=== PATIENT | female | born 1990 | race Native Hawaiian/Other Pacific Islander ===

== ENCOUNTER → 2017-02-16 | Outpatient (CLI) | payer SELFPAY ==
[~2017-02-16] MED LIST: ACHD5005 PO; CLIN-81 PO; DCS100C PO; FERR-57 PO; HYDR-3714 PO; IBP600T1 PO; MUPI15CR10 TP; ONDA8TAB13 PO; PNV1CAPS13 PO
--- NOTE | 2017-02-16 12:26 | Diagnostic Imaging Report ---
INDICATION: Evaluation for size and dates. TECHNIQUE: Multiple real-time grayscale images were obtained over the gravid uterus. COMPARISON: None. FINDINGS: There is presence of single viable intrauterine , currently in cephalic presentation. Normal amount of amniotic fluid. Anteriorly positioned placenta without previa. Visualized anatomical structures are unremarkable. The cardiac structures however are not visualized. Biometrical measurements are as follows: Biparietal 7.4 cm, age 29 weeks 6 days. Head circumference 27.83 cm, age 30 weeks 4 days. Abdominal circumference 25.92 cm, age 30 weeks 1 days. Femur length 5.66 cm, age 29 weeks 6 days. Sonographic estimate age: 30 weeks 1 days. Sonographic estimated date of delivery: 04-26-17. Estimated Weight: 1489 gm (+/- 217 gm). LMP percentile: 41%. heart rate: 155 beats per minute. number: 1 of 1. Maternal adnexa is not imaged. IMPRESSION: 1. Single viable intrauterine , currently in cephalic presentation. Sonographic estimated age is 30 weeks 1 day for an estimated date of delivery of April 26, 2017. 2. No abnormality is noted at this time. The cardiac structures however are not well assessed at this examination. Consideration for followup imaging recommended. Dictated by: Dictated on workstation # [id number]
== END ==
LOC: RAD 09:42
PROVIDERS: ATTEND Family Medicine
DX: Z34.93 Encounter for supervision of normal pregnancy, unspecified, third trimester (principal); Z3A.30 30 weeks gestation of pregnancy
CPT/HCPCS: 76805

== ENCOUNTER 2017-04-17 10:07 | Outpatient (CLI) | payer SELFPAY ==
[~2017-04-17] VITALS: Ht 157.5 cm; Wt 71.7 kg
[2017-04-17 10:21] VITALS: BP 110/68
== END 2017-04-17 10:44 | disposition home or self-care (01) ==
LOC: PREOP 10:07
PROVIDERS: ATTEND Obstetrics & Gynecology
DX: Z01.818 Encounter for other preprocedural examination (principal); Z11.2 Encounter for screening for other bacterial diseases; O34.211 Maternal care for low transverse scar from previous cesarean delivery; Z80.41 Family history of malignant neoplasm of ovary
CPT/HCPCS: 87081

== ENCOUNTER 2017-04-20 02:04 | Inpatient (IN) | payer OTHER ==
[2017-04-20] VITALS (9 sets, daily range): BP systolic 91–127; BP diastolic 50–84
[~2017-04-20] VITALS: Ht 157.5 cm; Wt 71.7 kg
[2017-04-20] MEDS ORDERED: LACTATED RINGERS 1,000 ML IV ONE (02:27)
[2017-04-20] MEDS: LACTATED RINGERS 1,000 ML IV PRN ×2 (02:40→03:23)
[2017-04-20] MEDS ORDERED: FAMOTIDINE 20MG/2ML IV (PEPCID) IV ONE (02:45)
[2017-04-20] MEDS ORDERED: METOCLOPRAMIDE INJ 10 MG/2 ML (REGLAN) IV ONE (02:45)
[2017-04-20] MEDS ORDERED: ceFAZolin 1,000 MG (ANCEF) VIAL ONE (02:45)
[2017-04-20] MEDS ORDERED: CITRIC ACID/SOB CIT (BICITRA) 30 ML UDC PO ONE (02:45)
[2017-04-20] MEDS ORDERED: ceFAZolin INJECTION 1,000 MG in D5W 50 ML IVPB SOLUTION 50 ML IV ONE (02:45)
[2017-04-20] MEDS ORDERED: CATHETER FLUSH 10 ML SYR IV PRN (02:45)
[2017-04-20] MEDS ORDERED: NS (IVPB) 50 ML ONE (02:45)
--- OUTSIDE RECORDS SUMMARY | 2017-04-20 02:45 | XMS REPORT ---
Author PRO [facility] [place] eClinicalWorks Address Unknown Phone Unavailable Care Team Providers Care Waterworks Chief Engineer Name Role Phone PRO ARRIAGA CP Unavailable Allergies No Known Allergies Problems Problem Type Condition Code Onset Dates Condition Status Assessment Encounter for immunization Z23 Active Medications No Known Medications Procedures Procedure Coding System Code Date SINGLE IMMUNIZATION ADMIN CPT-4 47044 Jan 21, 2015 FLUARIX QUAD (3 & UP)-GSK-2014 CPT-4 11354 Jan 21, 2015 Results No Known Results Immunizations Vaccine Administration Date FLUARIX QUAD (3 & UP)-GSK-2014Jan 21, 2015 Summary Purpose eClinicalWorks Submission
--- OUTSIDE RECORDS SUMMARY | 2017-04-20 02:45 | XMS REPORT ---
Author Author BONILLA BETANCUR [facility] Address [address] [place] [address] Care Team Providers Care Certification Technician Name Role Phone BONILLA BETANCUR Unavailable PROBLEMS Type Condition ICD9-CM Code [id number] Code Onset Dates Condition Status SNOMED Code Problem Late menses N92.6 Active [id number] ALLERGIES No Known Allergies SOCIAL HISTORY Never Assessed PLAN OF CARE Activity Details Follow Up prn Reason: VITAL SIGNS Height 62.5 in 2016-06-01 Weight 124.2 lbs 2016-06-01 Temperature 98.0 degrees Fahrenheit 2016-06-01 Heart Rate 88 bpm 2016-06-01 Respiratory Rate 18 2016-06-01 BMI 22.35 kg/m2 2016-06-01 Blood pressure systolic 100 mmHg 2016-06-01 Blood pressure diastolic 53 mmHg 2016-06-01 MEDICATIONS Unknown Medications RESULTS No Results PROCEDURES No Known procedures IMMUNIZATIONS No Known Immunizations MEDICAL (GENERAL) HISTORY Type Description Date Surgical History section x5 Hospitalization History Child /surgery Hospitalization History Dehydration/Abdominal pain
--- OUTSIDE RECORDS SUMMARY | 2017-04-20 02:46 | XMS REPORT | Continuity of Care Document ---
Author Author [facility] [place] [facility] Address Unknown Phone Unavailable Allergies Active Description Code Type Severity Reaction Onset Reported/Identified Relationship to Patient Clinical Status Yes No Known Drug Allergies [id number] Drug Allergy Unknown N/A 05/11/2010 Medications There is no data. Problems Date Dx Coded Attending Type Code Diagnosis Diagnosed By 11/16/2007 131.9 Trichomoniasis Unspecified 11/16/2007 V72.31 Die Cast Die Maker Exam, Routine 11/16/2007 V74.5 Screening Examination For Venereal Disease 11/16/2007 PRO ARRIAGA DO K 131.9 Trichomoniasis Unspecified 11/16/2007 LAURA ARRIAGA DOA K V72.31 Die Cast Die Maker Exam, Routine 11/16/2007 PRO ARRIAGA DO K V74.5 Screening Examination For Venereal Disease 11/16/2007 LAURA ARRIAGA DOA K 131.9 Trichomoniasis Unspecified 11/16/2007 LAURA ARRIAGA DOA K V72.31 Die Cast Die Maker Exam, Routine 11/16/2007 LAURA ARRIAGA DOA K V74.5 Screening Examination For Venereal Disease 11/16/2007 MADL COMMUNITY HEALTH NURSE SUPERVISOR BRI L 131.9 Trichomoniasis Unspecified 11/16/2007 MADL COMMUNITY HEALTH NURSE SUPERVISOR, BRI L V72.31 Die Cast Die Maker Exam, Routine 11/16/2007 PRAMODL COMMUNITY HEALTH NURSE SUPERVISOR, BRI L V74.5 Screening Examination For Venereal Disease 11/16/2007 KODY GOODMAN, KENAN Ruiz 131.9 Trichomoniasis Unspecified 11/16/2007 KENAN GATES MD V72.31 Die Cast Die Maker Exam, Routine 11/16/2007 KENAN GATES MD V74.5 Screening Examination For Venereal Disease 11/16/2007 PRO ARRIAGA DO K 131.9 Trichomoniasis Unspecified 11/16/2007 LAURA ARRIAGA DOA K V72.31 Die Cast Die Maker Exam, Routine 11/16/2007 PRO ARRIAGA DO K V74.5 Screening Examination For Venereal Disease 11/16/2007 131.9 Trichomoniasis Unspecified 11/16/2007 V72.31 Die Cast Die Maker Exam, Routine 11/16/2007 V74.5 Screening Examination For Venereal Disease 11/16/2007 AKUA SOLARES MD 131.9 Trichomoniasis Unspecified 11/16/2007 BECK GOODMAN, AKUA Rojas V72.31 Die Cast Die Maker Exam, Routine 11/16/2007 BECK GOODMAN, AKUA Rojas V74.5 Screening Examination For Venereal Disease 07/10/2008 616.10 Vaginitis 07/10/2008 625.3 Severe Menstrual Pain (dysmenorrhea) 07/10/2008 V25.49 Gynecologic Service Prescrip Of Contracept Agent - Repeat Rx 07/10/2008 PRO ARRIAGA DO 616.10 Vaginitis 07/10/2008 PRO ARRIAGA DO 625.3 Severe Menstrual Pain (dysmenorrhea) 07/10/2008 PRO ARRIAGA DO V25.49 Gynecologic Service Prescrip Of Contracept Agent - Repeat Rx 07/10/2008 PRO ARRIAGA DO 616.10 Vaginitis 07/10/2008 PRO ARRIAGA DO 625.3 Severe Menstrual Pain (dysmenorrhea) 07/10/2008 PRO ARRIAGA DO V25.49 Gynecologic Service Prescrip Of Contracept Agent - Repeat Rx 07/10/2008 BRI HORVATH APRN 616.10 Vaginitis 07/10/2008 BRI HORVATH APRN L 625.3 Severe Menstrual Pain (dysmenorrhea) 07/10/2008 BRI HORVATH APRN V25.49 Gynecologic Service Prescrip Of Contracept Agent - Repeat Rx 07/10/2008 KENAN GATES MD 616.10 Vaginitis 07/10/2008 KENAN GATES MD 625.3 Severe Menstrual Pain (dysmenorrhea) 07/10/2008 KENAN GATES MD V25.49 Gynecologic Service Prescrip Of Contracept Agent - Repeat Rx 07/10/2008 PRO ARRIAGA DO 616.10 Vaginitis 07/10/2008 PRO ARRIAGA DO 625.3 Severe Menstrual Pain (dysmenorrhea) 07/10/2008 PRO ARRIAGA DO V25.49 Gynecologic Service Prescrip Of Contracept Agent - Repeat Rx 07/10/2008 616.10 Vaginitis 07/10/2008 625.3 Severe Menstrual Pain (dysmenorrhea) 07/10/2008 V25.49 Gynecologic Service Prescrip Of Contracept Agent - Repeat Rx 07/10/2008 AKUA SOLARES MD 616.10 Vaginitis 07/10/2008 AKUA SOLARES MD 625.3 Severe Menstrual Pain (dysmenorrhea) 07/10/2008 AKUA SOLARES MD V25.49 Gynecologic Service Prescrip Of Contracept Agent - Repeat Rx 10/23/2008 V72.42 Test Positive Result 10/23/2008 BART LUJAN PRO K V72.42 Test Positive Result 10/23/2008 BART LUJAN PRO K V72.42 Test Positive Result 10/23/2008 MARIA ELENA HORVATH APRNA L V72.42 Test Positive Result 10/23/2008 KENAN GATES MD V72.42 Test Positive Result 10/23/2008 ARRIAGA LAURA LUJANA K V72.42 Test Positive Result 10/23/2008 V72.42 Test Positive Result 10/23/2008 AKUA SOLARES MD V72.42 Test Positive Result 10/30/2008 285.9 ANEMIA UNSPECIFIED 10/30/2008 V22.0 Pc Normal First 10/30/2008 BART LUJAN PRO K 285.9 ANEMIA UNSPECIFIED 10/30/2008 ARRIAGA DO PRO K V22.0 Pc Normal First 10/30/2008 BART LUJAN PRO K 285.9 ANEMIA UNSPECIFIED 10/30/2008 ARRIAGA DO PRO K V22.0 Pc Normal First 10/30/2008 M[facility] COMMUNITY HEALTH NURSE SUPERVISOR, BRI L 285.9 ANEMIA UNSPECIFIED 10/30/2008 MADL COMMUNITY HEALTH NURSE SUPERVISORLUIS RuizBRI L V22.0 Pc Normal First 10/30/2008 KENAN GATES MD 285.9 ANEMIA UNSPECIFIED 10/30/2008 KENAN GATES MD V22.0 Pc Normal First 10/30/2008 ARRIAGA DO PRO K 285.9 ANEMIA UNSPECIFIED 10/30/2008 ARRIAGA DO PRO K V22.0 Pc Normal First 10/30/2008 285.9 ANEMIA UNSPECIFIED 10/30/2008 V22.0 Pc Normal First 10/30/2008 AKUA SOLARES MD 285.9 ANEMIA UNSPECIFIED 10/30/2008 AKUA SOLARES MD V22.0 Pc Normal First 11/12/2008 651.00 Twin Unspecified As To Episode Of Care 11/12/2008 LAURA ARRIAGA DOA K 651.00 Twin Unspecified As To Episode Of Care 11/12/2008 LAURA ARRIAGA DOA K 651.00 Twin Unspecified As To Episode Of Care 11/12/2008 MADL COMMUNITY HEALTH NURSE SUPERVISOR, BRI L 651.00 Twin Unspecified As To Episode Of Care 11/12/2008 KENAN GATES MD 651.00 Twin Unspecified As To Episode Of Care 11/12/2008 LAURA ARRIAGA DOA K 651.00 Twin Unspecified As To Episode Of Care 11/12/2008 651.00 Twin Unspecified As To Episode Of Care 11/12/2008 AKUA SOLARES MD 651.00 Twin Unspecified As To Episode Of Care 03/31/2010 648.20 COMPL OF - ANEMIA 03/31/2010 V22.1 , NORMAL OTHER 03/31/2010 ARRIAGA LAURA LUJANA K 648.20 COMPL OF - ANEMIA 03/31/2010 ARRIAGA DO PRO K V22.1 , NORMAL OTHER 03/31/2010 ARRIAGA DO PRO K 648.20 COMPL OF - ANEMIA 03/31/2010 ARRIAGA DO PRO K V22.1 , NORMAL OTHER 03/31/2010 [facility] COMMUNITY HEALTH NURSE SUPERVISOR, BRI L 648.20 COMPL OF - ANEMIA 03/31/2010 MADL COMMUNITY HEALTH NURSE SUPERVISOR, BRI L V22.1 , NORMAL OTHER 03/31/2010 KENAN GATES MD 648.20 COMPL OF - ANEMIA 03/31/2010 KENAN GATES MD V22.1 , NORMAL OTHER 03/31/2010 ARRIAGA DO PRO K 648.20 COMPL OF - ANEMIA 03/31/2010 ARRIAGA DO PRO K V22.1 , NORMAL OTHER 03/31/2010 648.20 COMPL OF - ANEMIA 03/31/2010 V22.1 , NORMAL OTHER 03/31/2010 BECK GOODMAN, AKUA Rojas 648.20 COMPL OF - ANEMIA 03/31/2010 BECK GOODMAN, AKUA Rojas V22.1 , NORMAL OTHER 04/22/2010 654.20 PREVIOUS C- SECTION 04/22/2010 PRO ARRIAGA DO 654.20 PREVIOUS 04/22/2010 PRO ARRIAGA DO 654.20 PREVIOUS 04/22/2010 BRI HORVATH APRN 654.20 PREVIOUS 04/22/2010 KODY GOODMAN, KENAN Ruiz 654.20 PREVIOUS 04/22/2010 PRO ARRIAGA DO 654.20 PREVIOUS 04/22/2010 654.20 PREVIOUS C- SECTION 04/22/2010 BECK GOODMAN, AKUA Rojas 654.20 PREVIOUS 05/14/2010 Ot 285.1 AC POSTHEMORRHAG ANEMIA 05/14/2010 Ot 285.9 ANEMIA NOS 05/14/2010 Ot 614.6 FEM PELVIC PERITON ADH-POST-OP/INF 05/14/2010 Ot 648.21 ANEMIA- DELIVERED 05/14/2010 Ot 648.22 ANEMIA- DELIVERED W P/P 05/14/2010 Ot 654.21 PREV DELIVRY W/ OR W/O MENT ANT 05/14/2010 Ot 654.41 ABN UTERUS NEC-DELIVERED 05/14/2010 Ot 656.51 POOR GROWTH-DELIV 05/14/2010 Ot V27.0 DELIVER- SINGLE LIVEBORN 11/25/2010 616.10 VAGINITIS VULVOVAGINITIS UNSPECIFIED 11/25/2010 626.4 IRREGULAR MENSTRUAL CYCLE 11/25/2010 V74.5 STD SCREEN 11/25/2010 PRO ARRIAGA DO 616.10 VAGINITIS VULVOVAGINITIS UNSPECIFIED 11/25/2010 PRO ARRIAGA DO 626.4 IRREGULAR MENSTRUAL CYCLE 11/25/2010 PRO ARRIAGA DO V74.5 STD SCREEN 11/25/2010 PRO ARRIAGA DO 616.10 VAGINITIS VULVOVAGINITIS UNSPECIFIED 11/25/2010 PRO ARRIAGA DO 626.4 IRREGULAR MENSTRUAL CYCLE 11/25/2010 PRO ARRIAGA DO V74.5 STD SCREEN 11/25/2010 PRAMODLaura COMMUNITY HEALTH NURSE SUPERVISORBRI Ruiz L 616.10 VAGINITIS VULVOVAGINITIS UNSPECIFIED 11/25/2010 BRI HORVATH APRN L 626.4 IRREGULAR MENSTRUAL CYCLE 11/25/2010 YULIET HARGROVEBRI Ruiz L V74.5 STD SCREEN 11/25/2010 KENAN GATES MD 616.10 VAGINITIS VULVOVAGINITIS UNSPECIFIED 11/25/2010 KENAN GATES MD 626.4 IRREGULAR MENSTRUAL CYCLE 11/25/2010 KENAN GATES MD V74.5 STD SCREEN 11/25/2010 PRO ARRIAGA DO 616.10 VAGINITIS VULVOVAGINITIS UNSPECIFIED 11/25/2010 PRO ARRIAGA DO 626.4 IRREGULAR MENSTRUAL CYCLE 11/25/2010 PRO ARRIAGA DO V74.5 STD SCREEN 11/25/2010 616.10 VAGINITIS VULVOVAGINITIS UNSPECIFIED 11/25/2010 626.4 IRREGULAR MENSTRUAL CYCLE 11/25/2010 V74.5 STD SCREEN 11/25/2010 AKUA SOLARES MD 616.10 VAGINITIS VULVOVAGINITIS UNSPECIFIED 11/25/2010 AKUA SOLARES MD 626.4 IRREGULAR MENSTRUAL CYCLE 11/25/2010 AKUA SOLARES MD V74.5 STD SCREEN 06/27/2011 486 PNEUMONIA UNSPECIFIED 06/27/2011 PRO ARRIAGA DO 486 PNEUMONIA UNSPECIFIED 06/27/2011 PRO ARRIAGA DO 486 PNEUMONIA UNSPECIFIED 06/27/2011 BRI HORVATH APRN 486 PNEUMONIA UNSPECIFIED 06/27/2011 KENAN GATES MD 486 PNEUMONIA UNSPECIFIED 06/27/2011 PRO ARRIAGA DO 486 PNEUMONIA UNSPECIFIED 06/27/2011 486 PNEUMONIA UNSPECIFIED 06/27/2011 AKUA SOLARES MD 486 PNEUMONIA UNSPECIFIED 11/22/2012 V06.1 TDAP DX 11/22/2012 V23.7 , HIGH RISK W/ INSUFFICIENT CARE 11/22/2012 V77.1 DIABETES SCREENING 11/22/2012 V78.0 ANEMIA SCREENING 11/22/2012 PRO ARRIAGA DO V06.1 TDAP DX 11/22/2012 LAURA ARRIAGA DOA K V23.7 , HIGH RISK W/ INSUFFICIENT CARE 11/22/2012 LAURA ARRIAGA DOA K V77.1 DIABETES SCREENING 11/22/2012 LAURA ARRIAGA DOA K V78.0 ANEMIA SCREENING 11/22/2012 LAURA ARRIAGA DOA K V06.1 TDAP DX 11/22/2012 LAURA ARRIAGA DOA K V23.7 , HIGH RISK W/ INSUFFICIENT CARE 11/22/2012 LAURA ARRIAGA DOA K V77.1 DIABETES SCREENING 11/22/2012 LAURA ARRIAGA DOA K V78.0 ANEMIA SCREENING 11/22/2012 M[facility] COMMUNITY HEALTH NURSE SUPERVISOR, BRI L V06.1 TDAP DX 11/22/2012 MADL COMMUNITY HEALTH NURSE SUPERVISOR, BRI L V23.7 , HIGH RISK W/ INSUFFICIENT CARE 11/22/2012 MADL COMMUNITY HEALTH NURSE SUPERVISOR, BRI L V77.1 DIABETES SCREENING 11/22/2012 MADL COMMUNITY HEALTH NURSE SUPERVISOR, BRI L V78.0 ANEMIA SCREENING 11/22/2012 KENAN GATES MD V06.1 TDAP DX 11/22/2012 KENAN GATES MD V23.7 , HIGH RISK W/ INSUFFICIENT CARE 11/22/2012 KENAN GATES MD V77.1 DIABETES SCREENING 11/22/2012 KENAN GATES MD V78.0 ANEMIA SCREENING 11/22/2012 LAURA ARRIAGA DOA K V06.1 TDAP DX 11/22/2012 LAURA ARRIAGA DOA K V23.7 , HIGH RISK W/ INSUFFICIENT CARE 11/22/2012 LAURA ARRIAGA DOA K V77.1 DIABETES SCREENING 11/22/2012 LAURA ARRIAGA DOA K V78.0 ANEMIA SCREENING 11/22/2012 V06.1 TDAP DX 11/22/2012 V23.7 , HIGH RISK W/ INSUFFICIENT CARE 11/22/2012 V77.1 DIABETES SCREENING 11/22/2012 V78.0 ANEMIA SCREENING 11/22/2012 AKUA SOLARES MD V06.1 TDAP DX 11/22/2012 AKUA SOLARES MD V23.7 , HIGH RISK W/ INSUFFICIENT CARE 11/22/2012 AKUA SOLARES MD V77.1 DIABETES SCREENING 11/22/2012 BECK GOODMAN, AKUA Rojas V78.0 ANEMIA SCREENING 12/16/2012 KENAN GATES MD Ot 285.1 12/16/2012 KENAN GATES MD Ot 648.22 12/16/2012 KENAN GATES MD Ot 654.21 12/16/2012 KENAN GATES MD Ot 654.41 12/16/2012 KENAN GATES MD Ot V04.81 12/16/2012 KENAN GATES MD Ot V27.0 02/16/2013 PRO ARRIAGA DO K 558.9 OTHER AND UNSPECIFIED NONINFECTIOUS GASTROENTERITIS AND COLITIS 02/16/2013 BRI HORVATH APRN L 558.9 OTHER AND UNSPECIFIED NONINFECTIOUS GASTROENTERITIS AND COLITIS 02/16/2013 KENAN GATES MD N 558.9 OTHER AND UNSPECIFIED NONINFECTIOUS GASTROENTERITIS AND COLITIS 02/16/2013 PRO ARRIAGA DO K 558.9 OTHER AND UNSPECIFIED NONINFECTIOUS GASTROENTERITIS AND COLITIS 02/16/2013 558.9 OTHER AND UNSPECIFIED NONINFECTIOUS GASTROENTERITIS AND COLITIS 02/16/2013 BECK GOODMAN, AKUA Rojas 558.9 OTHER AND UNSPECIFIED NONINFECTIOUS GASTROENTERITIS AND COLITIS 09/01/2013 JOAQUIN VELÁSQUEZ Ot 611.0 09/24/2013 BRI HORVATH APRN L 564.00 UNSPECIFIED CONSTIPATION 09/24/2013 MARIA ELENA HORVATH APRNA L 578.1 BLOOD IN STOOL 09/24/2013 BRI HORVATH APRN L 789.00 ABDOMINAL PAIN UNSPECIFIED SITE 09/24/2013 KENAN GATES MD N 564.00 UNSPECIFIED CONSTIPATION 09/24/2013 KENAN GATES MD N 578.1 BLOOD IN STOOL 09/24/2013 KENAN GATES MD N 789.00 ABDOMINAL PAIN UNSPECIFIED SITE 09/24/2013 PRO ARRIAGA DO K 564.00 UNSPECIFIED CONSTIPATION 09/24/2013 PRO ARRIAGA DO K 578.1 BLOOD IN STOOL 09/24/2013 PRO ARRIAGA DO K 789.00 ABDOMINAL PAIN UNSPECIFIED SITE 09/24/2013 564.00 UNSPECIFIED CONSTIPATION 09/24/2013 578.1 BLOOD IN STOOL 09/24/2013 789.00 ABDOMINAL PAIN UNSPECIFIED SITE 09/24/2013 AKUA SOLARES MD 564.00 UNSPECIFIED CONSTIPATION 09/24/2013 AKUA SOLARES MD 578.1 BLOOD IN STOOL 09/24/2013 AKUA SOLARES MD 789.00 ABDOMINAL PAIN UNSPECIFIED SITE 12/19/2013 KENAN GATES MD V72.42 TEST POSITIVE RESULT 12/19/2013 PRO ARRIAGA DO V72.42 TEST POSITIVE RESULT 12/19/2013 V72.42 TEST POSITIVE RESULT 12/19/2013 AKUA SOLARES MD V72.42 TEST POSITIVE RESULT 04/08/2014 PRO ARRIAGA DO 651.00 , HIGH RISK W/ MULTIPLE GESTATIONS 04/08/2014 651.00 , HIGH RISK W/ MULTIPLE GESTATIONS 04/08/2014 AKUA SOLARES MD 651.00 , HIGH RISK W/ MULTIPLE GESTATIONS 04/16/2014 Ot 654.23 04/16/2014 Ot V72.63 04/16/2014 Ot V74.8 04/18/2014 IONA DEVLIN APRN Ot V28.89 04/22/2014 PRO ARRIAGA DO V76.2 CERVICAL CANCER SCREENING (PAP SMEAR) 04/22/2014 V76.2 CERVICAL CANCER SCREENING (PAP SMEAR) 04/22/2014 AKUA SOLARES MD V76.2 CERVICAL CANCER SCREENING (PAP SMEAR) 04/23/2014 PRO ARRIAGA DO V25.9 CONTRACEPTION MANAGEMENT 04/23/2014 PRO ARRIAGA DO V74.1 TB SCREENING 04/23/2014 V25.9 CONTRACEPTION MANAGEMENT 04/23/2014 V74.1 TB SCREENING 04/23/2014 AKUA SOLARES MD V25.9 CONTRACEPTION MANAGEMENT 04/23/2014 AKUA SOLARES MD V74.1 TB SCREENING 04/30/2014 IONA DEVLIN APRN Ot V28.89 05/15/2014 692.9 CONTACT DERMATITIS AND OTHER ECZEMA UNSPECIFIED CAUSE 05/15/2014 AKUA SOLARES MD 692.9 CONTACT DERMATITIS AND OTHER ECZEMA UNSPECIFIED CAUSE 06/16/2014 682.9 CELLULITIS AND ABSCESS OF UNSPECIFIED SITES 06/16/2014 919.4 INSECT BITE NONVENOMOUS OF OTHER MULTIPLE AND UNSPECIFIED SITES WITHOUT INFECTION 06/16/2014 BECK GOODMAN, AKUA Rojas 682.9 CELLULITIS AND ABSCESS OF UNSPECIFIED SITES 06/16/2014 BECK GOODMAN, AKUA Rojas 919.4 INSECT BITE NONVENOMOUS OF OTHER MULTIPLE AND UNSPECIFIED SITES WITHOUT INFECTION 06/19/2014 QUITA, IONA A COMMUNITY HEALTH NURSE SUPERVISOR Ot V23.7 06/19/2014 Ot 654.23 06/19/2014 Ot V72.63 06/19/2014 Ot V74.8 06/19/2014 IONA DEVLIN COMMUNITY HEALTH NURSE SUPERVISOR Ot V28.89 07/25/2014 IONA DEVLIN COMMUNITY HEALTH NURSE SUPERVISOR Ot V28.89 08/01/2014 QUITA IONA A COMMUNITY HEALTH NURSE SUPERVISOR Ot V23.7 08/01/2014 IONA DEVLIN COMMUNITY HEALTH NURSE SUPERVISOR Ot V23.7 08/01/2014 FENECH DO, ANNMARIE S Ot 654.23 08/01/2014 FENECH DO, ANNMARIE S Ot V72.63 08/01/2014 FENECH DO, ANNMARIE S Ot V74.8 08/01/2014 QUITA IONA A COMMUNITY HEALTH NURSE SUPERVISOR Ot V23.7 08/01/2014 QUITA IONA Christen COMMUNITY HEALTH NURSE SUPERVISOR Ot V28.89 08/01/2014 FENECH DO, ANNMARIE S Ot 654.23 08/01/2014 FENECH DO, ANNMARIE S Ot V72.63 08/01/2014 FENECH DO, ANNMARIE S Ot V74.8 08/01/2014 QUITA IONA A COMMUNITY HEALTH NURSE SUPERVISOR Ot V28.89 08/01/2014 FENECH DO, ANNMARIE S Ot 654.23 08/01/2014 FENECH DO, ANNMARIE S Ot V72.63 08/01/2014 FENECH DO, ANNMARIE S Ot V74.8 08/02/2014 IONA DEVLIN COMMUNITY HEALTH NURSE SUPERVISOR Ot V23.7 08/02/2014 QUITA IONA A COMMUNITY HEALTH NURSE SUPERVISOR Ot V28.89 08/02/2014 FENECH DO, ANNMARIE S Ot 654.23 08/02/2014 FENECH DO, ANNMARIE S Ot V72.63 08/02/2014 FENECH DO, ANNMARIE S Ot V74.8 08/02/2014 BECK GOODMAN, AKUA Rojas Ot 654.21 08/02/2014 BECK GOODMAN, AKUA Rojas Ot V06.1 08/02/2014 BECK GOODMAN, AKUA Rojas Ot V06.4 08/02/2014 BECK GOODMAN, AKUA Rojas Ot V27.0 08/08/2014 FENECH DO, ANNMARIE S Ot 654.23 08/08/2014 FENECH DO, ANNMARIE S Ot V72.63 08/08/2014 FENECH DO, ANNMARIE S Ot V74.8 08/13/2014 BECK GOODMAN, AKUA Rojas Ot 654.21 08/13/2014 BECK GOODMAN, AKUA Rojas Ot V06.1 08/13/2014 BECK GOODMAN, AKUA Rojas Ot V06.4 08/13/2014 BECK GOODMAN, AKUA Rojas Ot V27.0 08/13/2014 BECK GOODMAN, AKUA Rojas Ot 654.21 08/13/2014 BECK GOODMAN, AKUA Rojas Ot V06.1 08/13/2014 BECK GOODMAN, AKUA Rojas Ot V06.4 08/13/2014 BECK GOODMAN, AKUA Rojas Ot V27.0 08/21/2014 BECK GOODMAN, AKUA Rojas Ot 654.21 08/21/2014 BECK GOODMAN, AKUA Rojas Ot V06.1 08/21/2014 BECK GOODMAN, AKUA Rojas Ot V06.4 08/21/2014 BECK GOODMAN, AKUA Rojas Ot V27.0 08/21/2014 FENECH DO, ANNMARIE S Ot 654.23 08/21/2014 FENECH DO, ANNMARIE S Ot V72.63 08/21/2014 FENECH DO, ANNMARIE S Ot V74.8 09/18/2014 FENECH DO, ANNMARIE S Ot 654.23 09/18/2014 FENECH DO, ANNMARIE S Ot V72.63 09/18/2014 FENECH DO, ANNMARIE S Ot V74.8 09/25/2014 BECK GOODMAN, AKUA Rojas Ot 654.21 09/25/2014 BECK GOODMAN, AKUA Rojas Ot V06.1 09/25/2014 BECK GOODMAN, AKUA Rojas Ot V06.4 09/25/2014 BECK GOODMAN, AKUA Rojas Ot V27.0 10/27/2014 IONA DEVLIN COMMUNITY HEALTH NURSE SUPERVISOR Ot V28.89 10/27/2014 FENECH ANNMARIE LUJAN S Ot 654.23 10/27/2014 ANNMARIE ESCUDERO DO S Ot V72.63 10/27/2014 ANNMARIE ESCUDERO DO S Ot V74.8 11/10/2014 IONA DEVLIN COMMUNITY HEALTH NURSE SUPERVISOR Ot V28.89 04/09/2016 IONA DEVLIN COMMUNITY HEALTH NURSE SUPERVISOR Ot V28.89 OTHER SPECIFIED SCREENING 04/09/2016 ANNMARIE ESCUDERO DO S Ot 654.23 PREV DELIVERY, ANTEPARTUM COND 04/09/2016 ANNMARIE ESCUDERO DO S Ot V72.63 PRE-PROCEDURAL LABORATORY EXAMINATION 04/09/2016 ANNMARIE ESCUDERO DO S Ot V74.8 SCREEN-BACTERIAL DIS NEC 02/24/2017 AKUA SOLARES MD, Ot Z34.93 ENCNTR FOR SUPRVSN OF NORMAL PREG, UNSP, 02/24/2017 AKUA SOLARES MD, Ot Z3A.30 30 WEEKS GESTATION OF 02/24/2017 AKUA SOLARES MD, Ot Z34.93 ENCNTR FOR SUPRVSN OF NORMAL PREG, UNSP, 02/24/2017 AKUA SOLARES MD, Ot Z3A.30 30 WEEKS GESTATION OF Procedures Code Description Performed By Performed On 54.59 [facility] LYSIS-PERITONEAL ADHES 05/12/2010 74.1 LOW CERVICAL 05/12/2010 53390 ROUTINE VENIPUNCTURE 11/22/2012 69663 UA OB DIP 11/22/2012 38580 URINE DRUG SCREEN (IN-HOUSE ) 11/22/2012 37798 CBC 11/22/2012 53405 GLUCOSE CONNER 1 HOUR 11/22/2012 85674 CULTURE URINE 11/23/2012 59464 US OB - COMPLETE >14 WEEKS 11/26/2012 56759 UA W/ CULTURE IF INDICATED 12/05/2012 48472 XRAY ABDOMEN 2 VIEWS 09/24/2013 05588 TEST, URINE (IN- HOUSE) 09/24/2013 25071 TEST, URINE (IN- HOUSE) 12/19/2013 [id number] US OB - EARLY <14 WEEKS 12/19/2013 99967 UA OB DIP 04/22/2014 71277 TRICHOMONAS (IN-HOUSE) 04/22/2014 23140 GC/CHLAM PROBE (STATE) 04/23/2014 Q0091 PAP SMEAR OBTAIN SMEAR 04/23/2014 28087 TB TEST INTRADERMAL 04/23/2014 53866 PAP SMEAR 04/25/2014 62544 CULTURE UROGENITAL 04/25/2014 Obstetric Annmarie Escudero 06/25/2014 35929 UA OB DIP 06/25/2014 Results Test Result Range Methicillin resistant Staphylococcus aureus (MRSA) screening culture - 10:26 Methicillin resistant Staphylococcus aureus (MRSA) screening culture NEG NRG Encounters ACCT No. Visit Date/Time Discharge Status Pt. Type Provider Facility Loc./Unit Complaint [id number] 06/25/2014 13:55:00 06/25/2014 23:59:59 CLS Outpatient AKUA SOLARES MD [id number] 04/23/2014 14:07:00 04/23/2014 23:59:59 CLS Outpatient PRO ARRIAGA DO [id number] 12/19/2013 14:01:00 12/19/2013 23:59:59 CLS Outpatient KENAN GATES MD [id number] 09/24/2013 13:56:00 09/24/2013 23:59:59 CLS Outpatient PRAMODLaura BRI GAITAN [id number] 02/16/2013 11:47:00 02/16/2013 23:59:59 CLS Outpatient PRO ARRIAGA DO [id number] 12/05/2012 14:42:00 12/05/2012 23:59:59 CLS Outpatient PRO ARRIAGA DO [id number] 06/16/2014 16:04:00 Document Registration [id number] 11/22/2012 13:19:00 Document Registration [id number] 02/16/2017 10:12:00 02/16/2017 23:59:59 CLS Outpatient AKUA SOLARES MD [facility] RAD Z34.92 [id number] 07/31/2014 01:21:00 08/02/2014 12:00:00 DIS Inpatient AKUA SOLARES MD [facility] [id number] 08/01/2014 08:30:00 08/01/2014 23:59:59 CLS Preadmit ANNMARIE ESCUDERO DO S PREVIOUS SECTION [id number] 07/25/2014 09:20:00 07/25/2014 23:59:59 CLS Outpatient ANNMARIE ESCUDERO DO [facility] PREOP PREVIOUS SETION [id number] 04/17/2014 12:47:00 04/17/2014 23:59:59 CLS Outpatient IONA DEVLIN APRN [facility] RAD DATING SURVEY LATE CARE [id number] 09/01/2013 21:28:00 09/01/2013 22:33:00 DIS Emergency JOAQUIN VELÁSQUEZ [facility] ER [id number] 12/14/2012 06:50:00 12/16/2012 11:15:00 DIS Inpatient KENAN GATES MD [facility] WS [id number] 11/26/2012 13:12:00 11/26/2012 23:59:59 CLS Outpatient IONA DEVLIN APRN [facility] RAD [id number] 04/24/2017 08:45:00 PEN Preadmit ANNMARIE ESCUDERO DO PREVIOUS X5, FAMILY HISTORY OF OVARIAN CANCER [id number] 04/18/2017 13:05:00 Document Registration [id number] 05/11/2010 19:16:00 Document Registration [id number] 05/11/2010 13:50:00 Document Registration
[2017-04-20 02:54] LABS: BASOPHILS % (AUTO) 0 % (0-10); EOSINOPHILS # (AUTO) 0.2 10^3/uL (0.0-0.3); EOSINOPHILS % (AUTO) 1 % (0-10); HEMATOCRIT 35 % (35-52); LYMPHOCYTES # (AUTO) 1.9 X 10^3 (1.0-4.0); LYMPHOCYTES % (AUTO) 14 % (12-44); MEAN CORPUSCULAR HEMOGLOBIN 30 PG (25-34); MEAN CORPUSCULAR HGB CONC 34 G/DL (32-36); MEAN CORPUSCULAR VOLUME 89 FL (80-99); MEAN PLATELET VOLUME 10.4 FL (7.4-10.4); MONOCYTES # (AUTO) 1.1 X 10^3 (0.0-1.0); MONOCYTES % (AUTO) 8 % (0-12); NEUTROPHILS # (AUTO) 10.7 X 10^3 (1.8-7.8); NEUTROPHILS % (AUTO) 77 % (42-75); PLATELET COUNT 266 10^3/uL (130-400); RED BLOOD COUNT 3.97 10^6/uL (4.35-5.85); RED CELL DISTRIBUTION WIDTH 13.1 % (10.0-14.5); WHITE BLOOD COUNT 13.9 10^3/uL (4.3-11.0)
--- NOTE | 2017-04-20 03:01 | History & Physical-OB ---
OB - Chief Complaint & HPI Date/Time Date of Admission: Date of Admission: Apr 20, 2017 at 02:31 Time Seen by Provider: 02:45 Chief Complaint/History OB-Reason for Admission/Chief: Onset of Labor Hx : 5 Hx Para: 5 Expected Date of Delivery: Apr 28, 2017 Gestational Age in Weeks: 38 Gestational Age in Days: 6 Indication for : desires repeat Admission Nurse Assessment Rev: Yes History of Labs O pos Antibody neg RI RPR NR HBsAg NR HIV NR GC neg Allergies and Home Medications Allergies Coded Allergies: No Known Drug Allergies (Unverified , 05/11/10) Home Medications No Active Prescriptions or Reported Meds OB - History Hx of Present Care: Yes Ultrasounds: Normal mid trimester US Obstetrical Complications: None Medical Complications: None Obstetrical History Hx Termination: No Hx Multiple Gestation: Yes (1st ) Hx Stillbirth: No Hx Complication: No Hx Induced Hypertens: No Hx Maternal Gestational Diabet: No Delivery History Hx Dystocia: No Hx Large For Gestational Age I: No Hx Small for Gestational Age I: No Hx Section: Yes Hx Vaginal Delivery Post C-Sec: No Hx Blood Disorders: No Adverse Rxn to Tranfusion: No Patient Past Medical History no chronic medical problems. Social History/Family History HIV/AIDS: No Sexually Transmitted Disease: No Immunizations Tetanus Booster (TDap): Unknown Date of Influenza Vaccine: Dec 16, 2016 OB - Admission Exam Physical Exam HEENT: NCAT Heart: Rhythm Normal Lungs: Clear Abdomen: Gravid Extremities: Normal Reflexes: Normal Cervical Dilatation: 6cm Effacement: 75% Station: -1 Membranes: Intact Heart Rate: 130's Accelerations: Accelerations Present Decelerations: No Decelerations Short Term Variability: Present Residential Variability: Average (6-25) Contractions on Admission: 6-10 Minutes Apart Intensity: Mild Labs Laboratory Tests Test 04/20/17 02:40 Range/Units OB - Assessment/Plan/Diagnosis Assessment Assessment: section Plan Plan: Section Other Plan RLTCS w/ RRS Discharge Diagnosis Diagnosis: 26 yo @ 38.6 Previous x 4 Fam 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
--- NOTE | 2017-04-20 03:04 | Progress Note-Post Operative ---
Post-Operative Progess Note Surgeon (s)/Aircraft Powertrain Repairer (s) Surgeon ANNMARIE THORPE DO Aircraft Powertrain Repairer: Mark Hudson MD Pre-Operative Diagnosis Previous Cesearean, Active Labor, 39 week IUP Post-Operative Diagnosis same Procedure & Operative Findings Date of Procedure 04/20/17 Procedure Performed/Findings see section note Anesthesia Type spinal Estimated Blood Loss Estimated blood loss (mL): 600 Specimens/Packing Specimens Removed fallopian tubes ANNMARIE THORPE DO Apr 20, 2017 03:04
[2017-04-20] MEDS ORDERED: ONDANSETRON 4 MG/2 ML (SDV) Z0FRAN ONE (03:05)
[2017-04-20] MEDS ORDERED: fentaNYL INJECTION 100 MCG/2 ML AMP ONE (03:05)
[2017-04-20] MEDS ORDERED: OXYTOCIN/NORMAL SALINE 1,000 ML IV ONE (03:05)
[2017-04-20] MEDS ORDERED: OXYTOCIN/NORMAL SALINE 500 ML IV SCH (03:06)
[2017-04-20] MEDS ORDERED: TETANUS,DIPTH,PERTUSS P/F (BOOSTRIX) 0.5 ML VIAL IM SCH (03:15)
[2017-04-20] MEDS ORDERED: HYDROmorphone (DILAUDID) 2 MG/ML VIAL IVP PRN (03:15)
[2017-04-20] MEDS ORDERED: MEASLES,MUMPS,RUBELLA 1 EA INJ SC SCH (03:15)
[2017-04-20] MEDS ORDERED: ONDANSETRON 4 MG/2 ML (SDV) Z0FRAN IVP PRN (03:15)
[2017-04-20] MEDS ORDERED: HYDROcodone/APAP 5 MG/325 MG (LORTAB) TAB PO PRN (03:15)
--- NOTE | 2017-04-20 03:19 | Cesarean Section Operative ---
Procedure Procedure Note Pre-operative Diagnosis: Mireya Nolasco is a (26 /Para 5 / 5,Gestational Age (wks)38.6wks Post-operative Diagnosis: same Procedure: Repeat low transverse section, Risk reducing salpingectomy Physician: ANNMARIE THORPE DO Vocational Nurse Lvn: Mark Hudson MD Estimated blood loss: 600 mL Findings: Viable female , Apgars 8/9, weight pending, intact placenta, 3vc, normal appearing uterus, tubes, and ovaries. Indications:Mireya Nolasco is a (26 /Para 5 / 5,Gestational Age (wks)38 presenting for labor, with 4 prior cesareans sections and family history of malignancy. Patient wishes to proceed with RRS and understands this will take her ability for childbearing. She is fine with this as this is her 6th child and her childbearing is complete. Procedure Details: The patient was seen in pre-op and the procedure was discussed with the patient in full, including the risks, benefits, and alternatives. All questions were answered. The patient was taken to the operating room and a time out was performed, verifying patient and procedure. After spinal anesthesia was placed by our anesthesia colleagues, the patient was placed in the dorsal supine with leftward tilt for uterine displacement.~ Her abdomen was then prepped and draped in the typical sterile fashion. A Pfannenstiel skin incision was made through the previously existing incisional scar using a scalpel and carried down through the underlying fascia. The fascia was incised in the midline and tented up using Karen clamps. On both the inferior and superior fascia side the rectus muscle was dissected off bluntly and sharply using Strange scissors. The peritoneum was identified and entered bluntly in the midline. This was then stretched laterally using manual strength. After entering the abdominal cavity and confirming lack of intraperitoneal adhesions, a large Celso retractor was placed and the lower uterine segment was visualized. A bladder flap was created with the use of Metzenbaum scissors.~ A scalpel was utilized to make a low transverse uterine incision. Amniotomy was performed with an Allis clamp with return of clear fluid. The infant's head was grasped and brought to the level of the incision. Fundal pressure was applied and was delivered without difficulty. Mouth and nares were suctioned with bulb suction. After the umbilical cord was clamped and cut, the was handed off to the pediatric staff. A sample of cord blood was then obtained. The placenta was delivered intact via uterine massage. The uterus was exteriorized and cleared of all clots and debris. The uterine incision was closed using 0 Vicryl in a running locked fashion. A second imbricated layer was placed using 0 Monocryl in a running fashion as well. The uterus was flexed forward and the posterior rectouterine space was inspected and cleared of all clots and debris. Again the hysterotomy site was examined and hemostasis was observed. The bilateral tubes and ovaries appeared normal. I then proceed with bilateral salpingectomy by bilaterally amputating the tube at the proximal isthmic portion using a ligasure, and taking this plane down the mesosalpinx using the ligasure, all while achieving hemostasis with the device. The tube is then amputated at the distal ovarian connection site.The uterus was placed back into the abdominal cavity and abdominal gutters were cleared of all clots and debris. A final check of the uterine incision showed it to be hemostatic. The peritoneum was closed using 3-0 Vicryl in a running fashion. Rectus muscles are reapproximated using 3-0 vicryl in interrupted fashion. The fascia was closed with 0 Vicryl in a running fashion. The subcutaneous space was hemostatic , and irrigated. The subcutaneous space was closed with 3-0 Vicryl in several single interrupted stitches. The skin was then closed using 4-0 Monocryl in a running subcuticular fashion. The skin edges were reapproximated together and were hemostatic. Dermabond is placed over the incision. A pressure dressing was applied. All sponge, lap and needle counts were correct at the end of the procedure per nursing. ANNMARIE THORPE DO Apr 20, 2017 03:19
[2017-04-20] MEDS ORDERED: IBUP-1773 PO (03:22)
[2017-04-20] MEDS ORDERED: DOCU100C37 PO (03:22)
[2017-04-20] MEDS ORDERED: ACHD5005 PO (03:22)
--- NOTE | 2017-04-20 03:23 | Discharge Inst-Women's Service ---
Discharge Inst-Women's Serv Depart Medication/Instructions New, Converted or Re-Newed RX: RX on Chart Consults/Follow Up Additional Follow Up: Yes Orders/Referrals Dr. Escudero in 7-10 days and in [address] Hudson Activity Activity: Activity as Tolerated Driving Instructions: No Driving for 1 Week NO SMOKING: NO SMOKING Nothing Inside Vagina: No Douching, No Burnside, No Tampons Diet Discharge Diet: No Restrictions Symptoms to Report to : Bleeding Excessive, Pain Increased, Fever Over 101 Degrees F, Vaginal Bleeding Increase, Questions/Concerns For Any Problems or Questions: Contact Your Physician Skin/Wound Care Infection Signs and Symptoms: Increased Redness, Foul Odor of Wound, Increased Drainage, Skin Itchy or Has a Rash, Increased Swelling, Temperature Above 101 F Operative Area Clean and Dry: Keep Incision Clean/Dry Stitches/Mary/Dermabond: Dermabond, Care of Stitches Bathing Instructions: ANNMARIE Lindsay DO Apr 20, 2017 03:23
[2017-04-20] MEDS ORDERED: PHENYLEPHRINE 100 MCG/ML 10 ML (ANESTHESIA) SYR ONE (03:46)
[2017-04-20] MEDS ORDERED: KETOROLAC 30 MG/ML VIAL ONE (04:10)
[2017-04-20] MEDS: IBUPROFEN 600 MG (MOTRIN) TAB PO SCH ×3 (04:29→15:15)
[2017-04-20] MEDS ORDERED: diphenhydrAMINE 50 MG/ML INJ (BENADRYL) IV PRN (04:30)
[2017-04-20] MEDS ORDERED: ONDANSETRON 4 MG/2 ML (SDV) Z0FRAN IV PRN (04:30)
[2017-04-20] MEDS ORDERED: METOCLOPRAMIDE INJ 10 MG/2 ML (REGLAN) IV PRN (04:30)
[2017-04-20] MEDS ORDERED: NALOXONE 0.4 MG/ML 1 ML (NARCAN) VIAL IV PRN ×2 (04:30)
[2017-04-20] MEDS ORDERED: KETOROLAC 30 MG/ML VIAL IVP ONE (04:30)
[2017-04-20] MEDS ORDERED: LACTATED RINGERS 1,000 ML IV PRN (06:25)
[2017-04-20] MEDS: KETOROLAC 30 MG/ML VIAL IVP SCH ×3 (06:41→16:23)
[2017-04-20] MEDS: CATHETER FLUSH 10 ML SYR IV SCH (06:42)
[2017-04-20] MEDS: DOCUSATE SODIUM 100 MG (COLACE) CAP PO SCH ×2 (08:18→20:34)
[2017-04-20] MEDS ORDERED: D5 LR IV SOLUTION 1,000 ML IV ONE (10:13)
[2017-04-20] MEDS ORDERED: D5 LR IV SOLUTION 1,000 ML IV SCH (10:30)
--- NOTE | 2017-04-20 13:08 | Anesthesia-Regional Post-Op ---
Regional Patient Condition Mental Status: Alert, Oriented x3 Circulation: Same as Pre-Op Headache: Absent Sensation: Full Recovery Motor Block: Absent Post Op Complications Complications None Follow Up Care/Instructions Patient Instructions None needed. Anesthesia/Patient Condition Patient is doing well, no complaints, stable vital signs, no apparent adverse anesthesia problems. No complications reported per nursing. D/C home per [facility] Criteria: No JOSE ALFREDO BOUCHER CRNA Apr 20, 2017 13:08
[2017-04-21] MEDS: IBUPROFEN 600 MG (MOTRIN) TAB PO SCH ×4 (00:07→18:44)
[2017-04-21 01:35] VITALS: BP 97/64
[2017-04-21] MEDS: KETOROLAC 30 MG/ML VIAL IVP SCH (01:36)
[2017-04-21] MEDS: CATHETER FLUSH 10 ML SYR IV SCH ×3 (01:37→01:43)
[2017-04-21 05:30] VITALS: BP 100/56
[2017-04-21 05:56] LABS: BASOPHILS % (AUTO) 0 % (0-10); EOSINOPHILS # (AUTO) 0.2 10^3/uL (0.0-0.3); EOSINOPHILS % (AUTO) 1 % (0-10); HEMATOCRIT 29 % (35-52); HEMOGLOBIN 9.6 G/DL (11.5-16.0); LYMPHOCYTES # (AUTO) 2.9 X 10^3 (1.0-4.0); LYMPHOCYTES % (AUTO) 21 % (12-44); MEAN CORPUSCULAR HEMOGLOBIN 30 PG (25-34); MEAN CORPUSCULAR HGB CONC 33 G/DL (32-36); MEAN CORPUSCULAR VOLUME 92 FL (80-99); MEAN PLATELET VOLUME 10.1 FL (7.4-10.4); MONOCYTES % (AUTO) 7 % (0-12); NEUTROPHILS # (AUTO) 9.8 X 10^3 (1.8-7.8); NEUTROPHILS % (AUTO) 71 % (42-75); PLATELET COUNT 190 10^3/uL (130-400); RED BLOOD COUNT 3.17 10^6/uL (4.35-5.85); RED CELL DISTRIBUTION WIDTH 13.2 % (10.0-14.5); WHITE BLOOD COUNT 13.9 10^3/uL (4.3-11.0)
[2017-04-21 08:30] VITALS: BP 105/69
--- NOTE | 2017-04-21 08:30 | Postpartum Progress Note ---
Post Op Post-operative Day #1 Subjective: Patient is without complaints. Ambulating, voiding after pittman removed. Tolerating a regular diet without nausea or vomiting. Normal lochia. Pain is well controlled with oral pain medications. Passing flatus. Objective: Laboratory Tests Test 04/21/17 05:45 Range/Units White Blood Count 13.9 H 4.3-11.0 10^3/uL Red Blood Count 3.17 L 4.35-5.85 10^6/uL Hemoglobin 9.6 L 11.5-16.0 G/DL Hematocrit 29 L 35-52 % Mean Corpuscular Volume 92 80-99 FL Mean Corpuscular Hemoglobin 30 25-34 PG Mean Corpuscular Hemoglobin Concent 33 32-36 G/DL Red Cell Distribution Width 13.2 10.0-14.5 % Platelet Count 190 130-400 10^3/uL Mean Platelet Volume 10.1 7.4-10.4 FL Neutrophils (%) (Auto) 71 42-75 % Lymphocytes (%) (Auto) 21 12-44 % Monocytes (%) (Auto) 7 0-12 % Eosinophils (%) (Auto) 1 0-10 % Basophils (%) (Auto) 0 0-10 % Neutrophils # (Auto) 9.8 H 1.8-7.8 X 10^3 Lymphocytes # (Auto) 2.9 1.0-4.0 X 10^3 Monocytes # (Auto) 1.0 0.0-1.0 X 10^3 Eosinophils # (Auto) 0.2 0.0-0.3 10^3/uL Basophils # (Auto) 0.0 0.0-0.1 10^3/uL VSSAF Physical Exam: General - Alert and oriented, no apparent distress Abdomen - Soft, appropriately tender to palpation, non-distended, fundus firm at umbilicus Incision - clean, dry and intact; no erythema or induration, bloody drainage yesterday has stopped with pressure Extremities - no edema, negative Marcel's bilaterally Assessment: Post-operative day # 1, status post RLTCS w RSS. Recovering well, hemodynamically stable Acute blood loss anemia Plan: Routine post-operative care. Encourage breast feeding. Encourage ambulation. VTE prophylaxis: SCDs. Ferrous sulfate supplementation. Plan for discharge tomorrow Vitals - Labs Vital Signs - I&O Vital Signs Date Time Temp Pulse Resp B/P (MAP) Pulse Ox O2 Delivery O2 Flow Rate FiO2 04/21/17 05:30 98.8 59 18 100/56 (71) 98 Room Air 04/21/17 01:35 98.7 67 18 97/64 (75) 98 Room Air 04/20/17 20:34 99.0 68 20 93/64 (74) 99 Room Air 04/20/17 16:00 99.4 74 20 100/62 (75) 99 Room Air 04/20/17 12:20 98.0 83 16 104/66 (79) 98 Room Air I & O 04/21/17 07:00 Intake Total 3480 ml Output Total 1650 ml Balance 1830 ml Labs Laboratory Tests 04/21/17 05:45: White Blood Count 13.9H, Red Blood Count 3.17L, Hemoglobin 9.6L, Hematocrit 29L , Mean Corpuscular Volume 92, Mean Corpuscular Hemoglobin 30, Mean Corpuscular Hemoglobin Concent 33, Red Cell Distribution Width 13.2, Platelet Count 190, Mean Platelet Volume 10.1, Neutrophils (%) (Auto) 71, Lymphocytes (%) (Auto) 21 , Monocytes (%) (Auto) 7, Eosinophils (%) (Auto) 1, Basophils (%) (Auto) 0, Neutrophils # (Auto) 9.8H, Lymphocytes # (Auto) 2.9, Monocytes # (Auto) 1.0, Eosinophils # (Auto) 0.2, Basophils # (Auto) 0.0 ANNMARIE THORPE DO Apr 21, 2017 8:30 am
[2017-04-21] MEDS: DOCUSATE SODIUM 100 MG (COLACE) CAP PO SCH ×2 (09:21→21:51)
[2017-04-21 13:00] VITALS: BP 105/70
[2017-04-21 18:43] VITALS: BP 104/66
[2017-04-22 00:25] VITALS: BP 94/59
[2017-04-22] MEDS: IBUPROFEN 600 MG (MOTRIN) TAB PO SCH ×2 (00:27→06:16)
[2017-04-22 06:15] VITALS: BP 104/71
--- NOTE | 2017-04-22 08:02 | Postpartum Progress Note ---
Post Op Post-operative Day #2 Subjective: Patient is without complaints. Ambulating, voiding after pittman removed. Tolerating a regular diet without nausea or vomiting. Normal lochia. Pain is well controlled with oral pain medications. Passing flatus. Objective: Vital Sign - Last 24 Hours 04/21/17 04/21/17 04/21/17 04/22/17 08:30 13:00 18:43 00:25 Temp 99.0 99.0 99.0 98.0 Pulse 88 81 91 90 Resp 18 18 16 14 B/P (MAP) 105/69 (81) 105/70 (82) 104/66 (79) 94/59 (71) Pulse Ox 98 97 99 96 O2 Delivery Room Air Room Air Room Air Room Air 04/22/17 06:15 Temp 98.0 Pulse 90 Resp 18 B/P (MAP) 104/71 (82) Pulse Ox 98 O2 Delivery Room Air Physical Exam: General - Alert and oriented, no apparent distress Abdomen - Soft, appropriately tender to palpation, non-distended, fundus firm at umbilicus Incision - clean, dry and intact; no erythema or induration, no drainage Extremities - no edema, negative Marcel's bilaterally Assessment: POD 2 RLTCS with RRS Recovering well, hemodynamically stable Acute blood loss anemia Plan: Routine post-operative care. Encourage breast feeding. Encourage ambulation. VTE prophylaxis: SCDs. Ferrous sulfate supplementation. Plan for discharge today Vitals - Labs Vital Signs - I&O Vital Signs Date Time Temp Pulse Resp B/P (MAP) Pulse Ox O2 Delivery O2 Flow Rate FiO2 04/22/17 06:15 98.0 90 18 104/71 (82) 98 Room Air 04/22/17 00:25 98.0 90 14 94/59 (71) 96 Room Air 04/21/17 18:43 99.0 91 16 104/66 (79) 99 Room Air 04/21/17 13:00 99.0 81 18 105/70 (82) 97 Room Air 04/21/17 08:30 99.0 88 18 105/69 (81) 98 Room Air ANNMARIE THORPE DO Apr 22, 2017 8:01 am
[2017-04-22] MEDS ORDERED: BISACODYL 5 MG (DULCOLAX) TABLET PO ONE (08:15)
[2017-04-22 08:46] VITALS: BP 124/76
[2017-04-22] MEDS: DOCUSATE SODIUM 100 MG (COLACE) CAP PO SCH (08:54)
== END 2017-04-22 10:20 | disposition home or self-care (01) | DRG 765 ==
LOC: WSo 02:04 → LDRP 02:05 → WSo 02:30 → LDRP 02:31
PROVIDERS: ADMIT Obstetrics & Gynecology; ATTEND Obstetrics & Gynecology
PROC: 0UT70ZZ Resection of Bilateral Fallopian Tubes, Open Approach (ICD-10-PCS; 2017-04-20)
PROC: 10D00Z1 Extraction of Products of Conception, Low, Open Approach (ICD-10-PCS; principal; 2017-04-20 03:15)
DX: O34.211 Maternal care for low transverse scar from previous cesarean delivery (principal); O90.81 Anemia of the puerperium; D62 Acute posthemorrhagic anemia; Z3A.38 38 weeks gestation of pregnancy; Z37.0 Single live birth; Z23 Encounter for immunization
CPT/HCPCS: 36415; 85025; 86850; 86900; 86901; 90707; 94664; 99212

== ENCOUNTER 2017-05-13 10:32 | Emergency (ER) | payer MEDICAID ==
[~2017-05-13] VITALS: Ht 157.5 cm; Wt 63.5 kg
[~2017-05-13 10:32] MED LIST changes: +DOCU100C37 PO; +IBUP-1773 PO
--- OUTSIDE RECORDS SUMMARY | 2017-05-13 10:39 | XMS REPORT | Continuity of Care Document ---
Author Author [facility] Address Unknown Phone Unavailable Allergies Active Description Code Type Severity Reaction Onset Reported/Identified Relationship to Patient Clinical Status Yes No Known Drug Allergies [id number] Drug Allergy Unknown N/A 05/11/2010 Medications There is no data. Problems Date Dx Coded Attending Type Code Diagnosis Diagnosed By 11/16/2007 131.9 Trichomoniasis Unspecified 11/16/2007 V72.31 Substation Operator Helper Exam, Routine 11/16/2007 V74.5 Screening Examination For Venereal Disease 11/16/2007 PRO ARRIAGA DO K 131.9 Trichomoniasis Unspecified 11/16/2007 LAURA ARRIAGA DOA K V72.31 Substation Operator Helper Exam, Routine 11/16/2007 PRO ARRIAGA DO K V74.5 Screening Examination For Venereal Disease 11/16/2007 LAURA ARRIAGA DOA K 131.9 Trichomoniasis Unspecified 11/16/2007 LAURA ARRIAGA DOA K V72.31 Substation Operator Helper Exam, Routine 11/16/2007 LAURA ARRIAGA DOA K V74.5 Screening Examination For Venereal Disease 11/16/2007 MADL WAFER SLICER BRI L 131.9 Trichomoniasis Unspecified 11/16/2007 MADL WAFER SLICER, BRI L V72.31 Substation Operator Helper Exam, Routine 11/16/2007 PRAMODL WAFER SLICER, BRI L V74.5 Screening Examination For Venereal Disease 11/16/2007 KODY GOODMAN, KENAN Ruiz 131.9 Trichomoniasis Unspecified 11/16/2007 KENAN GATES MD V72.31 Substation Operator Helper Exam, Routine 11/16/2007 KENAN GATES MD V74.5 Screening Examination For Venereal Disease 11/16/2007 PRO ARRIAGA DO K 131.9 Trichomoniasis Unspecified 11/16/2007 LAURA ARRIAGA DOA K V72.31 Substation Operator Helper Exam, Routine 11/16/2007 PRO ARRIAGA DO K V74.5 Screening Examination For Venereal Disease 11/16/2007 131.9 Trichomoniasis Unspecified 11/16/2007 V72.31 Substation Operator Helper Exam, Routine 11/16/2007 V74.5 Screening Examination For Venereal Disease 11/16/2007 AKUA SOLARES MD 131.9 Trichomoniasis Unspecified 11/16/2007 BECK GOODMAN, AKUA Rojas V72.31 Substation Operator Helper Exam, Routine 11/16/2007 BECK GOODMAN, AKUA Rojas [...] K V22.0 Pc Normal First 10/30/2008 MADL WAFER SLICER, BRI L 285.9 ANEMIA UNSPECIFIED 10/30/2008 MADL WAFER SLICERLUIS RuizBRI L V22.0 Pc Normal First 10/30/2008 KENAN GATES MD 285.9 ANEMIA UNSPECIFIED 10/30/2008 KENAN GATSE MD V22.0 Pc Normal First 10/30/2008 ARRIAGA [...] As To Episode Of Care 11/12/2008 MADL WAFER SLICER, BRI L 651.00 Twin Unspecified As To [...] K V22.1 , NORMAL OTHER 03/31/2010 MADL WAFER SLICER, BRI L 648.20 COMPL OF - ANEMIA 03/31/2010 MADL WAFER SLICER, BRI L V22.1 , NORMAL OTHER 03/31/2010 [...] ARRIAGA DO V74.5 STD SCREEN 11/25/2010 PRAMODLaura WAFER SLICERBRI Ruiz L 616.10 VAGINITIS VULVOVAGINITIS UNSPECIFIED 11/25/2010 [...] DOA K V78.0 ANEMIA SCREENING 11/22/2012 MADL WAFER SLICER, BRI L V06.1 TDAP DX 11/22/2012 MADL WAFER SLICER, BRI L V23.7 , HIGH RISK W/ INSUFFICIENT CARE 11/22/2012 MADL WAFER SLICER, BRI L V77.1 DIABETES SCREENING 11/22/2012 MADL WAFER SLICER, BRI L V78.0 ANEMIA SCREENING 11/22/2012 KENAN [...] AKUA SOLARES MD V77.1 DIABETES SCREENING 11/22/2012 AKUA SOLARES MD V78.0 ANEMIA SCREENING 12/16/2012 KENAN GATES MD Ot 285.1 AC POSTHEMORRHAG ANEMIA 12/16/2012 KENAN GATES MD Ot 648.22 ANEMIA-DELIVERED W P/P 12/16/2012 KENAN GATES MD Ot 654.21 PREV DELIVRY W/ OR W/O MENT ANT 12/16/2012 KENAN GATES MD Ot 654.41 ABN UTERUS NEC-DELIVERED 12/16/2012 KENAN GATES MD Ot V04.81 ND FOR PROPHYLACTIC VACCIN AND INOCULATI 12/16/2012 KENAN GATES MD Ot V27.0 DELIVER-SINGLE LIVEBORN 02/16/2013 PRO ARIRAGA DO 558.9 OTHER AND UNSPECIFIED NONINFECTIOUS GASTROENTERITIS AND COLITIS 02/16/2013 MARIA ELENA HORVATH APRNA L 558.9 OTHER AND UNSPECIFIED NONINFECTIOUS GASTROENTERITIS AND COLITIS 02/16/2013 KENAN GATES MD 558.9 OTHER AND UNSPECIFIED NONINFECTIOUS GASTROENTERITIS AND COLITIS 02/16/2013 PRO ARRIAGA DO 558.9 OTHER AND UNSPECIFIED NONINFECTIOUS GASTROENTERITIS AND COLITIS 02/16/2013 558.9 OTHER AND UNSPECIFIED NONINFECTIOUS GASTROENTERITIS AND COLITIS 02/16/2013 AKUA SOLARES MD 558.9 OTHER AND UNSPECIFIED NONINFECTIOUS GASTROENTERITIS AND COLITIS 09/01/2013 JOAQUIN VELÁSQUEZ L Ot 611.0 09/24/2013 MARIA ELENA HORVATH APRNA L 564.00 UNSPECIFIED CONSTIPATION 09/24/2013 YULIET GAITAN BRI L 578.1 BLOOD IN STOOL 09/24/2013 MARIA ELENA HORVATH APRNA L 789.00 ABDOMINAL PAIN UNSPECIFIED SITE 09/24/2013 KENAN GATES MD N 564.00 UNSPECIFIED CONSTIPATION 09/24/2013 KENAN GATES MD N 578.1 BLOOD IN STOOL 09/24/2013 KENAN GATES MD N 789.00 ABDOMINAL PAIN UNSPECIFIED SITE 09/24/2013 PRO ARRIAGA DO 564.00 UNSPECIFIED CONSTIPATION 09/24/2013 PRO ARRIAGA DO 578.1 BLOOD IN STOOL 09/24/2013 PRO ARRIAGA DO 789.00 ABDOMINAL PAIN UNSPECIFIED SITE 09/24/2013 564.00 UNSPECIFIED CONSTIPATION 09/24/2013 578.1 BLOOD IN STOOL 09/24/2013 789.00 ABDOMINAL PAIN UNSPECIFIED SITE 09/24/2013 AKUA SOLARES MD 564.00 UNSPECIFIED CONSTIPATION 09/24/2013 AKUA SOLARES MD 578.1 BLOOD IN STOOL 09/24/2013 AKUA SOLARES MD 789.00 ABDOMINAL PAIN UNSPECIFIED SITE 12/19/2013 KODY GOODMAN, KENAN Ruiz V72.42 TEST POSITIVE RESULT 12/19/2013 PRO ARRIAGA [...] MULTIPLE AND UNSPECIFIED SITES WITHOUT INFECTION 06/16/2014 AKUA SOLARES MD 682.9 CELLULITIS AND ABSCESS OF UNSPECIFIED SITES 06/16/2014 AKUA SOLARES MD 919.4 INSECT BITE NONVENOMOUS OF OTHER MULTIPLE AND UNSPECIFIED SITES WITHOUT INFECTION 06/19/2014 IONA DEVLIN WAFER SLICER Ot V23.7 06/19/2014 Ot 654.23 06/19/2014 Ot V72.63 06/19/2014 Ot V74.8 06/19/2014 IONA DEVLIN WAFER SLICER Ot V28.89 07/25/2014 IONA DEVLIN WAFER SLICER Ot V28.89 08/01/2014 IONA DEVLIN WAFER SLICER Ot V23.7 08/01/2014 IONA DEVLIN WAFER SLICER Ot V23.7 08/01/2014 FENECH DO, ANNMARIE S Ot 654.23 08/01/2014 FENECH DO, ANNMARIE S Ot V72.63 08/01/2014 FENECH DOANNMARIE S Ot V74.8 08/01/2014 IONA DEVLIN WAFER SLICER Ot V23.7 08/01/2014 IONA DEVLIN WAFER SLICER Ot V28.89 08/01/2014 FENECH DO, ANNMARIE S Ot 654.23 08/01/2014 FENECH DO, ANNMARIE S Ot V72.63 08/01/2014 FENECH DO, ANNMARIE S Ot V74.8 08/01/2014 IONA DEVLIN WAFER SLICER Ot V28.89 08/01/2014 FENECH DO, ANNMARIE S Ot 654.23 08/01/2014 FENECH DO, ANNMARIE S Ot V72.63 08/01/2014 FENECH DO, ANNMARIE S Ot V74.8 08/02/2014 IONA DEVLIN WAFER SLICER Ot V23.7 08/02/2014 IONA DEVLIN WAFER SLICER Ot V28.89 08/02/2014 FENECH DOANNMARIE S Ot 654.23 08/02/2014 FENECH DOANNMARIE S Ot V72.63 08/02/2014 FENECH DOANNMARIE S Ot V74.8 08/02/2014 BECK GOODMAN, AKUA Rojas Ot 654.21 PREV DELIVRY W/ OR W/O MENT ANT 08/02/2014 BECK GOODMAN, AKUA Rojas Ot V06.1 IYSMRJEISE-[id number]-ZVPGGYEXA, COMBINED [ 08/02/2014 BECK GOODMAN, AKUA Rojas Ot V06.4 [id number]-[id number] 08/02/2014 AKUA SOLARES MD Ot V27.0 DELIVER-SINGLE LIVEBORN 08/08/2014 ANNMARIE THORPE DO S Ot 654.23 08/08/2014 ANNMARIE THORPE DO S Ot V72.63 08/08/2014 ANNMARIE THORPE DO S Ot V74.8 08/13/2014 AKUA SOLARES MD Ot 654.21 08/13/2014 AKUA SOLARES MD Ot V06.1 08/13/2014 AKUA SOLARES MD Ot V06.4 08/13/2014 AKUA SOLARES MD Ot V27.0 08/13/2014 AKUA SOLARES MD Ot 654.21 08/13/2014 AKUA SOLARES MD Ot V06.1 08/13/2014 AKUA SOLARES MD Ot V06.4 08/13/2014 AKUA SOLARES MD Ot V27.0 08/21/2014 AKUA SOLARES MD Ot 654.21 08/21/2014 AKUA SOLARES MD Ot V06.1 08/21/2014 KAUA SOLARES MD Ot V06.4 08/21/2014 AKUA SOLARES MD Ot V27.0 08/21/2014 FRANNIEECH DOANNMARIE S Ot 654.23 08/21/2014 FRANNIEECH DOANNMARIE S Ot V72.63 08/21/2014 FRANNIEECH DOANNMARIE S Ot V74.8 09/18/2014 FRANNIEECH DOANNMARIE S Ot 654.23 09/18/2014 FENECH DOANNMARIE S Ot V72.63 09/18/2014 ANNMARIE THORPE DO S Ot V74.8 09/25/2014 BECK GOODMAN, AKUA Rojas Ot 654.21 09/25/2014 BECK GOODMAN, AKUA Rojas Ot V06.1 09/25/2014 BECK GOODMAN, AKUA Rojas Ot V06.4 09/25/2014 AKUA SOLARES MD Ot V27.0 10/27/2014 IONA DEVLIN APRN Ot V28.89 10/27/2014 ILA LUJAN ANNMARIE S Ot 654.23 10/27/2014 ILA LUJAN ANNMARIE S Ot V72.63 10/27/2014 ILA LUJAN ANNMARIE S Ot V74.8 11/10/2014 IONA DEVLIN APRN Ot V28.89 04/09/2016 IONA DEVLIN WAFER SLICER Ot V28.89 OTHER SPECIFIED SCREENING 04/09/2016 FRANNIEBLAINE ANNMARIE S Ot 654.23 PREV DELIVERY, ANTEPARTUM COND 04/09/2016 FRANNIEBLAINE LUJAN ANNMARIE S Ot V72.63 PRE-PROCEDURAL LABORATORY EXAMINATION 04/09/2016 ILA LUJAN ANNMARIE S Ot V74.8 SCREEN-BACTERIAL DIS NEC 02/24/2017 AKUA SOLARES MD Ot Z34.93 ENCNTR FOR SUPRVSN OF NORMAL PREG, UNSP, 02/24/2017 AKUA SOLARES MD, Ot Z3A.30 30 WEEKS GESTATION OF 02/24/2017 AKUA SOLARES MD Ot Z34.93 ENCNTR FOR SUPRVSN OF NORMAL PREG, UNSP, 02/24/2017 AKUA SOLAERS MD, Ot Z3A.30 30 WEEKS GESTATION OF 04/17/2017 AKUA SOLARES MD, Ot Z34.93 ENCNTR FOR SUPRVSN OF NORMAL PREG, UNSP, 04/17/2017 AKUA SOLARES MD, Ot Z3A.30 30 WEEKS GESTATION OF 04/17/2017 ANNMARIE THORPE DO Ot O34.211 MATERN CARE FOR LOW TRANSVERSE SCAR FROM 04/17/2017 ANNMARIE THORPE DO Ot Z01.818 ENCOUNTER FOR OTHER PREPROCEDURAL EXAMIN 04/17/2017 ANNMARIE THORPE DO Ot Z11.2 ENCOUNTER FOR SCREENING FOR OTHER BACTER 04/17/2017 ANNMARIE THORPE DO Ot Z80.41 FAMILY HISTORY OF MALIGNANT NEOPLASM OF 04/18/2017 ILA ANNMARIE LUJAN Ot O34.211 MATERN CARE FOR LOW TRANSVERSE SCAR FROM 04/18/2017 FRANNIEBLAINE ANNMARIE LUJAN Ot Z01.818 ENCOUNTER FOR OTHER PREPROCEDURAL EXAMIN 04/18/2017 ILA ANNMARIE LUJAN Ot Z11.2 ENCOUNTER FOR SCREENING FOR OTHER BACTER 04/18/2017 ILA ANNMARIE LUJAN Ot Z80.41 FAMILY HISTORY OF MALIGNANT NEOPLASM OF 04/20/2017 AKUA SOLARES MD, Ot Z34.93 ENCNTR FOR SUPRVSN OF NORMAL PREG, UNSP, 04/20/2017 AKUA SOLARES MD, Ot Z3A.30 30 WEEKS GESTATION OF 04/20/2017 IONA DEVLIN APRN Ot V23.7 INSUFFICIENT CARE 04/20/2017 ILA ANNMARIE LUJAN Ot 654.23 PREV DELIVERY, ANTEPARTUM COND 04/20/2017 ANNMARIE THORPE DO Ot V72.63 PRE-PROCEDURAL LABORATORY EXAMINATION 04/20/2017 ILA ANNMARIE LUJAN Ot V74.8 SCREEN-BACTERIAL DIS NEC 04/22/2017 ILA ANNMARIE LUJAN Ot D62 ACUTE POSTHEMORRHAGIC ANEMIA 04/22/2017 ILA ANNMARIE LUJAN Ot O34.211 MATERN CARE FOR LOW TRANSVERSE SCAR FROM 04/22/2017 FRANNIEBLAINE ANNMARIE LUJAN Ot O90.81 ANEMIA OF THE PUERPERIUM 04/22/2017 ANNMARIE THORPE DO Ot Z23 ENCOUNTER FOR IMMUNIZATION 04/22/2017 ANNMARIE THORPE DO Ot Z37.0 SINGLE LIVE 04/22/2017 ANNMARIE THORPE DO Ot Z3A.38 38 WEEKS GESTATION OF 05/01/2017 AKUA SOLARES MD, Ot Z34.93 ENCNTR FOR SUPRVSN OF NORMAL PREG, UNSP, 05/01/2017 AKUA SOALRES MD, Ot Z3A.30 30 WEEKS GESTATION OF Procedures Code Description Performed By Performed On 54.59 [facility] LYSIS-PERITONEAL ADHES 05/12/2010 74.1 LOW CERVICAL 05/12/2010 10038 ROUTINE VENIPUNCTURE 11/22/2012 33398 UA OB DIP 11/22/2012 24674 URINE DRUG SCREEN (IN-HOUSE ) 11/22/2012 25820 CBC 11/22/2012 50674 GLUCOSE CONNER 1 HOUR 11/22/2012 23562 CULTURE URINE 11/23/2012 38572 US OB - COMPLETE >14 WEEKS 11/26/2012 91603 UA W/ CULTURE IF INDICATED 12/05/2012 74.1 LOW CERVICAL 12/14/2012 99.77 APPL/ADMIN OF AN ADHESION BARRIER SUBSTA 12/14/2012 78778 XRAY ABDOMEN 2 VIEWS 09/24/2013 79274 TEST, URINE (IN- HOUSE) 09/24/2013 17711 TEST, URINE (IN- HOUSE) 12/19/2013 61115 US OB - EARLY <14 WEEKS 12/19/2013 88635 UA OB DIP 04/22/2014 42658 TRICHOMONAS (IN-HOUSE) 04/22/2014 47148 GC/CHLAM PROBE (STATE) 04/23/2014 Q0091 PAP SMEAR OBTAIN SMEAR 04/23/2014 90484 TB TEST INTRADERMAL 04/23/2014 03354 PAP SMEAR 04/25/2014 39409 CULTURE UROGENITAL 04/25/2014 Obstetric Fenech, Annmarie 06/25/2014 17335 UA OB DIP 06/25/2014 74.1 LOW CERVICAL 07/31/2014 99.77 APPL/ADMIN OF AN ADHESION BARRIER SUBSTA 07/31/2014 [id number] RESECTION OF BILATERAL FALLOPIAN TUBES, 04/20/2017 [id number] EXTRACTION OF POC, LOW CERVICAL, OPEN AP 04/20/2017 Results Test Result Range Methicillin resistant Staphylococcus aureus (MRSA) screening culture - 10:26 Methicillin resistant Staphylococcus aureus (MRSA) screening culture NEG NRG Complete blood count (CBC) with automated white blood cell (WBC) differential - 04/20/17 02:40 Blood leukocytes automated count (number/volume) 13.9 10*3/uL 4.3-11.0 Blood erythrocytes automated count (number/volume) 3.97 10*6/uL 4.35-5.85 Venous blood hemoglobin measurement (mass/volume) 12.0 g/dL 11.5-16.0 Blood hematocrit (volume fraction) 35 % 35-52 Automated erythrocyte mean corpuscular volume 89 [foz_us] 80-99 Automated erythrocyte mean corpuscular hemoglobin (mass per erythrocyte) 30 pg 25-34 Automated erythrocyte mean corpuscular hemoglobin concentration measurement ( mass/volume) 34 g/dL 32-36 Automated erythrocyte distribution width ratio 13.1 % 10.0-14.5 Automated blood platelet count (count/volume) 266 10*3/uL 130-400 Automated blood platelet mean volume measurement 10.4 [foz_us] 7.4-10.4 Automated blood neutrophils/100 leukocytes 77 % 42-75 Automated blood lymphocytes/100 leukocytes 14 % 12-44 Blood monocytes/100 leukocytes 8 % 0-12 Automated blood eosinophils/100 leukocytes 1 % 0-10 Automated blood basophils/100 leukocytes 0 % 0-10 Blood neutrophils automated count (number/volume) 10.7 10*3 1.8-7.8 Blood lymphocytes automated count (number/volume) 1.9 10*3 1.0-4.0 Blood monocytes automated count (number/volume) 1.1 10*3 0.0-1.0 Automated eosinophil count 0.2 10*3/uL 0.0-0.3 Automated blood basophil count (count/volume) 0.0 10*3/uL 0.0-0.1 Blood type T Indirect antibody screen panel - 04/20/17 02:40 ABO+Rh group OP NRG Transfusion band number [id number] Blood group antibody screen NEGATIVE NR Complete blood count (CBC) with automated white blood cell (WBC) differential - 04/21/17 05:45 Blood leukocytes automated count (number/volume) 13.9 10*3/uL 4.3-11.0 Blood erythrocytes automated count (number/volume) 3.17 10*6/uL 4.35-5.85 Venous blood hemoglobin measurement (mass/volume) 9.6 g/dL 11.5-16.0 Blood hematocrit (volume fraction) 29 % 35-52 Automated erythrocyte mean corpuscular volume 92 [foz_us] 80-99 Automated erythrocyte mean corpuscular hemoglobin (mass per erythrocyte) 30 pg 25-34 Automated erythrocyte mean corpuscular hemoglobin concentration measurement ( mass/volume) 33 g/dL 32-36 Automated erythrocyte distribution width ratio 13.2 % 10.0-14.5 Automated blood platelet count (count/volume) 190 10*3/uL 130-400 Automated blood platelet mean volume measurement 10.1 [foz_us] 7.4-10.4 Automated blood neutrophils/100 leukocytes 71 % 42-75 Automated blood lymphocytes/100 leukocytes 21 % 12-44 Blood monocytes/100 leukocytes 7 % 0-12 Automated blood eosinophils/100 leukocytes 1 % 0-10 Automated blood basophils/100 leukocytes 0 % 0-10 Blood neutrophils automated count (number/volume) 9.8 10*3 1.8-7.8 Blood lymphocytes automated count (number/volume) 2.9 10*3 1.0-4.0 Blood monocytes automated count (number/volume) 1.0 10*3 0.0-1.0 Automated eosinophil count 0.2 10*3/uL 0.0-0.3 Automated blood basophil count (count/volume) 0.0 10*3/uL 0.0-0.1 Encounters ACCT No. Visit Date/Time Discharge Status Pt. Type Provider Facility Loc./Unit Complaint [id number] 06/25/2014 13:55:00 06/25/2014 23:59:59 CLS Outpatient AKUA SOLARES MD [id number] 04/23/2014 14:07:00 04/23/2014 23:59:59 CLS Outpatient PRO ARRIAGA DO [id number] 12/19/2013 14:01:00 12/19/2013 23:59:59 CLS Outpatient KODY GOODMAN, KENAN Ruiz [id number] 09/24/2013 13:56:00 09/24/2013 23:59:59 CLS Outpatient PRAMODLaura BRI GAITAN Laura [id number] 02/16/2013 11:47:00 02/16/2013 23:59:59 CLS Outpatient PRO ARRIAGA DO [id number] 12/05/2012 14:42:00 12/05/2012 23:59:59 CLS Outpatient PRO ARRIAGA DO [id number] 06/16/2014 16:04:00 Document Registration [id number] 11/22/2012 13:19:00 Document Registration [id number] 04/24/2017 08:45:00 04/24/2017 23:59:59 CLS Preadmit ANNMARIE THORPE DO PREVIOUS X5, FAMILY HISTORY OF OVARIAN CANCER [id number] 04/20/2017 02:31:00 04/22/2017 10:20:00 DIS Inpatient ANNMARIE THORPE DO [facility] [id number] 04/17/2017 10:07:00 04/17/2017 10:44:00 DIS Outpatient ANNMARIE THORPE DO [facility] PREOP PREVIOUS X5, FAMILY HX OF OVARIAN CANCER [id number] 02/16/2017 10:12:00 02/16/2017 23:59:59 CLS Outpatient AKUA SOLARES MD [facility] RAD Z34.92 [id number] 07/31/2014 01:21:00 08/02/2014 12:00:00 DIS Inpatient AKUA SOLARES MD [facility] WS REPEAT C SECTION [id number] 08/01/2014 08:30:00 08/01/2014 23:59:59 CLS Preadmit ANNMARIE THORPE DO PREVIOUS SECTION [id number] 07/25/2014 09:20:00 07/25/2014 23:59:59 CLS Outpatient ANNMARIE THORPE DO [facility] PREOP PREVIOUS SETION [id number] 04/17/2014 12:47:00 04/17/2014 23:59:59 CLS Outpatient IONA DEVLIN APRN [facility] RAD DATING SURVEY LATE CARE [id number] 09/01/2013 21:28:00 09/01/2013 22:33:00 DIS Emergency JOAQUIN VELÁSQUEZ [facility] ER [id number] 12/14/2012 06:50:00 12/16/2012 11:15:00 DIS Inpatient KENAN GATES MD [facility] WS CONTRACTIONS,VAG BLEEDING [id number] 11/26/2012 13:12:00 11/26/2012 23:59:59 CLS Outpatient IONA DEVLIN WAFER SLICER [facility] RAD SURVEY,DATING, UNKNOWN LMP [id number] 05/11/2010 19:16:00 Document Registration [id number] 05/11/2010 13:50:00 Document Registration
--- NOTE | 2017-05-13 11:16 | ED Psychosocial ---
General Chief Complaint: General Problems/Pain Stated Complaint: CAN'T FOCUS,BLURRY VISION,BLOOD IN STOOL Nursing Triage Note: AMBULATED TO ROOM 08 WITHOUT DIFFICULTY. COMPLAINS OF NOT BEING ABLE TO FOCUS, FEELING DIZZY, AND PROBLEMS OF BEING PARANOID FOR A WHILE NOW. STATES NO ONE WOULD WORK HER UP BECAUSE SHE WAS . STATES SHE HAD A BABY THE FIRST OF APR. Source: patient, old records Exam Limitations: no limitations History of Present Illness Date Seen by Provider: May 13, 2017 Time Seen by Provider: 10:48 Initial Comments Patient presents to ER by private conveyance with a chief complaint of 3 different issues. The first issue is that for the past several months since December 2016 she has experienced black spots that are persistent in her left eye and feeling like the edges of her eyes are dark on both sides as well as blurriness especially in her left eye. She does not wear glasses or contacts. She has an appointment in 2 weeks with an pressurizer at [facility] have her eyes examined. She denies any head trauma or history of glaucoma , eye or head pain, eye inflammation or drainage, fever or family history of blindness or eye issues. Patient also says she noticed just today she had a little bit of red mucousy blood around her normal hard formed stool and on wiping she had a little bit of red blood on the tissue. She says she she might have hemorrhoids. She is 3 weeks by . She is a all by . She says she is typically constipated. She does not take any medications to include control or opiate pain medications. Finally the patient says that she was told by [place] [employer] that she needed to talk to mental health. She went there to make a complaint that she was being followed by multiple people. She says her sister works at [facility] and she says she every time she goes to [facility] she sees people who work at the [facility] who are following her talking on the phone and staring at her. She has been followed by one of the pediatricians as well as several people in registration. She says they have also followed her other places besides [facility]. She says Ramona Reyna who is apparently a local radio DJ that she listens to has been following her as well and recently in front of the [employer] restaurant on [address] instructed a homeless person to come up and knocked on her window to talk to her. The patient says she was scared to talk to the homeless person so she just drove away. The patient says no one has tried to hurt her however she definitely feels that multiple people are following her and have ill intent because of the way they look at her. She says that the oven laborer at [facility] who ally some blood from her intentionally caused pain when putting the needle in her. She's not really certain when she started experiencing people following her. She denies hearing any voices or sounds or seeing anything that is not there. She denies suicidal ideation or previous suicide attempts. She denies a personal history of mental illness or any inpatient psychiatric hospitalization. Allergies and Home Medications Allergies Coded Allergies: No Known Drug Allergies (Unverified , 05/11/10) Home Medications Docusate Sodium 100 Mg Capsule, 100 MG PO BID PRN for CONSTIPATION-1ST LINE Prescribed by: ANNMARIE THORPE on 04/20/17321 Hydrocodone Bit/Acetaminophen 1 Tab Tab, 1-2 TAB PO Q4H PRN for PAIN-MODERATE Prescribed by: ANNMARIE THORPE on 04/20/17321 Ibuprofen 600 Mg Tablet, 600 MG PO Q6H Prescribed by: ANNMARIE THORPE on 04/20/17321 Constitutional: No chills, No diaphoresis, dizziness, No fever, No malaise EENTM: see HPI, No hearing loss, No ear pain, No blurred vision, No double vision Respiratory: No cough, No phlegm, No short of breath Cardiovascular: No chest pain, No Hx of Intervention, No syncope, No vascular heart diseas Gastrointestinal: see HPI, No abdominal pain, constipation, No diarrhea, No nausea, No vomiting Genitourinary: No discharge, No dysuria : No (3 weeks ) Control/STD Prophylaxis: None Musculoskeletal: No back pain, No joint pain Skin: No pruritus, No rash Psychiatric/Neurological: Denies Headache, Denies Numbness, Denies Paresthesia Past Tzibnhr-Axcywh-Endtrn Hx Patient Social History Alcohol Use: Denies Use Recreational Drug Use: No Smoking Status: Never a Smoker Type Used: Smokeless Tobacco (quit 2 days ago) Recent Foreign Travel: No Contact w/Someone Who Travel: No Recent Infectious Disease Expo: No Recent Hopitalizations: No Immunizations Up To Date Tetanus Booster (TDap): Unknown Date of Influenza Vaccine: Dec 16, 2016 Seasonal Allergies Seasonal Allergies: No Surgeries History of Surgeries: Yes (C/S X4) Respiratory History of Respiratory Disorde: No Cardiovascular History of Cardiac Disorders: No Neurological History of Neurological Disord: No Reproductive System Hx Reproductive Disorders: No Sexually Transmitted Disease: No HIV/AIDS: No Female Reproductive Disorders: Denies Genitourinary History of Genitourinary Disor: No Gastrointestinal History of Gastrointestinal Di: No Musculoskeletal History of Musculoskeletal Dis: No Endocrine History of Endocrine Disorders: No HEENT History of HEENT Disorders: No Cancer History of Cancer: No 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 ) Integumentary History of Skin or Integumenta: No Blood Transfusions History of Blood Disorders: No Adverse Reaction to a Blood Tr: No Family Medical History Family Medial History: Diabetes mellitus 19 MOTHER Physical Exam Vital Signs Vital Signs - First Documented 05/13/17 10:35 Temp 98.0 Pulse 70 Resp 18 B/P (MAP) 121/98 (106) Pulse Ox 99 Capillary Refill : Less Than 3 Seconds General Appearance: WD/WN, no apparent distress HEENT: PERRL/EOMI, normal ENT inspection, TMs normal, pharynx normal, No photophobia, other (normal bilateral funduscopic exam.) Neck: non-tender, full range of motion, supple, normal inspection Respiratory: chest non-tender, lungs clear, normal breath sounds, no respiratory distress, no accessory muscle use Cardiovascular: normal peripheral pulses, regular rate, rhythm Peripheral Pulses: 2+ Radial Pulses (R), 2+ Radial Pulses (L) Gastrointestinal: normal bowel sounds, non tender, soft Genital/Rectal: other (non-tender, non-engorged external rectal hemorrhoid at 5 :00 addition with no overt, jerod blood noted.) Extremities: non-tender, normal inspection, normal capillary refill Neurologic/Psychiatric: patient services representative II-XII nml as tested, no motor/sensory deficits, alert, normal mood/affect, oriented x 3, other (does not endorse hallucination. Doesn't endorse a persistent delusion of persecution/paranoia.) Appearance/Memory: appropriate appearance, no memory impairment, denies illness , impaired insight Behavior/Eye Contact: cooperative, normal speech, avoids eye contact, No decreased rate of speech, No increased rate of speech, No belligerent, No compulsive, No uncooperative Thoughts/Hallucinations: delusions, paranoid, persecution Skin: normal color, warm/dry Progress/Results/Core Measures Results/Orders Lab Results Laboratory Tests Test 05/13/17 11:09 05/13/17 11:10 Range/Units White Blood Count 9.9 4.3-11.0 10^3/uL Red Blood Count 4.46 4.35-5.85 10^6/uL Hemoglobin 12.8 11.5-16.0 G/DL Hematocrit 40 35-52 % Mean Corpuscular Volume 89 80-99 FL Mean Corpuscular Hemoglobin 29 25-34 PG Mean Corpuscular Hemoglobin Concent 32 32-36 G/DL Red Cell Distribution Width 13.0 10.0-14.5 % Platelet Count 349 130-400 10^3/uL Mean Platelet Volume 9.6 7.4-10.4 FL Neutrophils (%) (Auto) 71 42-75 % Lymphocytes (%) (Auto) 21 12-44 % Monocytes (%) (Auto) 6 0-12 % Eosinophils (%) (Auto) 2 0-10 % Basophils (%) (Auto) 0 0-10 % Neutrophils # (Auto) 7.0 1.8-7.8 X 10^3 Lymphocytes # (Auto) 2.1 1.0-4.0 X 10^3 Monocytes # (Auto) 0.6 0.0-1.0 X 10^3 Eosinophils # (Auto) 0.2 0.0-0.3 10^3/uL Basophils # (Auto) 0.0 0.0-0.1 10^3/uL Sodium Level 138 135-145 MMOL/L Potassium Level 3.5 L 3.6-5.0 MMOL/L Chloride Level 107 98-107 MMOL/L Carbon Dioxide Level 21 21-32 MMOL/L Anion Gap 10 5-14 MMOL/L Blood Urea Nitrogen 11 7-18 MG/DL Creatinine 0.73 0.60-1.30 MG/DL Estimat Glomerular Filtration Rate > 60 BUN/Creatinine Ratio 15 Glucose Level 87 70-105 MG/DL Calcium Level 8.8 8.5-10.1 MG/DL Total Bilirubin 0.5 0.1-1.0 MG/DL Aspartate Amino Transf (AST/SGOT) 12 5-34 U/L Alanine Aminotransferase (ALT/SGPT) 8 0-55 U/L Alkaline Phosphatase 100 40-136 U/L Total Protein 8.5 H 6.4-8.2 GM/DL Albumin 4.0 3.2-4.5 GM/DL Serum Alcohol < 10 <10 MG/DL Urine Color YELLOW Urine Clarity SLIGHTLY CLOUDY Urine pH 5 5-9 Urine Specific Leslie 1.020 1.016-1.022 Urine Protein 2+ H NEGATIVE Urine Glucose (UA) NEGATIVE NEGATIVE Urine Ketones 1+ H NEGATIVE Urine Nitrite NEGATIVE NEGATIVE Urine Bilirubin NEGATIVE NEGATIVE Urine Urobilinogen NORMAL NORMAL MG/DL Urine Leukocyte Esterase 1+ H NEGATIVE Urine RBC (Auto) 5+ H NEGATIVE Urine RBC TNTC H /HPF Urine WBC RARE /HPF Urine Squamous Epithelial Cells NONE /HPF Urine Crystals NONE /LPF Urine Bacteria TRACE /HPF Urine Casts NONE /LPF Urine Mucus NEGATIVE /LPF Urine Culture Indicated YES Urine Test NEGATIVE NEGATIVE Urine Opiates Screen NEGATIVE NEGATIVE Urine Oxycodone Screen NEGATIVE NEGATIVE Urine Methadone Screen NEGATIVE NEGATIVE Urine Propoxyphene Screen NEGATIVE NEGATIVE Urine Barbiturates Screen NEGATIVE NEGATIVE Ur Tricyclic Antidepressants Screen NEGATIVE NEGATIVE Urine Phencyclidine Screen NEGATIVE NEGATIVE Urine Amphetamines Screen NEGATIVE NEGATIVE Urine Methamphetamines Screen NEGATIVE NEGATIVE Urine Benzodiazepines Screen NEGATIVE NEGATIVE Urine Cocaine Screen NEGATIVE NEGATIVE Urine Cannabinoids Screen NEGATIVE NEGATIVE My Orders Orders - HAYDEN BRYANT Ct Head Wo (05/13/17 11:00) Saline Lock/Iv-Start (05/13/17 11:00) Alcohol (05/13/17 11:00) Cbc With Automated Diff (05/13/17 11:00) Comprehensive Metabolic Panel (05/13/17 11:00) Drug Screen Stat (Urine) (05/13/17 11:00) Hcg,Qualitative Urine (05/13/17 11:00) Ua Culture If Indicated (05/13/17 11:00) Chest 1 View, Ap/Pa Only (05/13/17 11:00) Urine Culture (05/13/17 11:10) Vital Signs/I&O Vital Sign - Last 12Hours 05/13/17 10:35 Temp 98.0 Pulse 70 Resp 18 B/P (MAP) 121/98 (106) Pulse Ox 99 Blood Pressure Mean: 106 Progress Note #1: Time: 11:19 Progress Note For her eye issue her funduscopic exam is unremarkable and her visual acuity was 20/25 in each eye. There is no trauma and no other neurologic findings or organ a do a CT scan paying special attention to these visual findings. She does have Optometry follow-up set up in the next 2 weeks which is probably appropriate. Her concern of bright red blood per rectum and seems to be scant and more related to hemorrhoids. Most concerning would be her endorsing of lesions paranoia and being followed. Her going to have [facility] come out and during examination if we can't find any thing on the urine drug screen, blood work and/or CT of the head that would explain this which is unlikely. She does have a grandfather or schizophrenia apparently. She seems to be fairly high functioning well dressed and taken care of 5 kids so an outpatient workup may be appropriate but we will likely get her at least plugged and some appointments before she leaves. Spoke with Iggy Addison and he will be by in about 45 minutes. Progress Note #2: Time: 12:00 Progress Note Red blood cells seen in urinalysis is probably due to her saying she is just starting her period again. She says her periods were fairly irregular before and unpredictable. Progress Note #3: Time: 12:55 Progress Note After Mr. kulkarni has had an opportunity to interview the patient and set up a plan we spoke and he agrees with the assessment that she is endorsing some paranoia and persecution delusions. All however she does not have any of the classic symptoms of hallucinations and he thinks she would be fine to do outpatient follow-up. The plan would be for them to contact her Monday and help her with transportation to get psych help. We discussed her imaging findings that she will need continued workup on that and that we do not completely correlate the imaging findings in the right occiput to her behavioral disorder. Neither Mr. kulkarni nor myself were able to get a good timeframe when these feelings of persecution and paranoia started and the closest thing he can get to his been going on for at least a year which is far longer than the eye symptoms. Diagnostic Imaging Diagonstic Imaging: CT Plain Films/CT/US/NM/MRI: head [facility] [place], [place] NAME: RENITA BARRAZA MED REC#: [id number] PT STATUS: REG ER : 1990 PHYSICIAN: HAYDEN BRYANT MD ADMIT DATE: 05/13/17/ER Draft Date of Exam:05/13/17 CT HEAD WO PROCEDURE: CT head without contrast. TECHNIQUE: Multiple contiguous axial images were obtained through the brain without the use of intravenous contrast. INDICATION: Difficulty focusing, blurry vision. Concern for optic nerve abnormality. COMPARISON: None FINDINGS: The ventricles and cortical sulci appear age-appropriate. There is no midline shift or mass effect. No acute intracranial hemorrhage is seen. There is mildly decreased attenuation along the cortex of the right occipital lobe (image 26 and 27 of series 2). The calvarium appears intact. The paranasal sinuses are incompletely included, but are unremarkable. The globes are also incompletely included, but appear intact. No masses or fluid collections are seen in the included portions of the orbits. IMPRESSION: 1. Subtle decreased attenuation at the cortex of the right occipital lobe. This may represent artifact, however small focal ischemia or mass lesion is difficult to exclude. Please correlate with clinical findings, and if indicated consider MRI. 2. No acute intracranial hemorrhage. No mass effect. 3. The optic nerves are partially included and appear unremarkable by CT, however if there is persistent clinical concern for optic nerve abnormality, consider MRI. Dictated on workstation # [id number] Dict: 05/13/17 1144 Trans: 05/13/17 1156 [id number] Interpreted by: VIKASH SANTIAGO MD Electronically signed by: Reviewed: Reviewed by Me Diagonstic Imaging: Xray Plain Films/CT/US/NM/MRI: chest Comments VIA [place], [place] NAME: RENITA BARRAZA [facility] REC#: [id number] PT STATUS: REG ER : 1990 PHYSICIAN: HAYDEN BRYANT MD ADMIT DATE: 05/13/17/ER Draft Date of Exam:05/13/17 CHEST 1 VIEW, AP/PA ONLY EXAMINATION: PA chest 12:03. INDICATION: Dizziness There are no prior studies available for comparison. The heart size is within normal limits. Lungs are clear. There is no evidence for failure, pneumonia or a pleural effusion. Mediastinum is not widened. The osseous structures are intact. IMPRESSION: There is no evidence for an acute cardiopulmonary abnormality. Dictated on workstation # [id number] Dict: 05/13/17 1146 Trans: 05/13/17 1150 [facility] [id number] Interpreted by: KIRSTIN GROSSMAN MD Electronically signed by: Reviewed: Reviewed by Me Consults Consults : Consulting Physician: AKUA SOLARES MD Consults Notes Discussed the case with Dr. Solares since he is known to the patient for OB care as well as he is leasing professional for [facility] which is the patient's established primary care provider. Wanted to close the loop with the communication with the primary care physician to indicate the patient has some findings on CT and will need some help getting an MRI set up. We do not have MRI available today and this can be done outpatient anyways. He recommends we just notify them Monday so they can follow up. We will just forward the note and encourage the patient to follow up Monday with the clinic by phone. Departure Impression Impression: Primary Impression: Brain lesion Additional Impressions: Vision changes Paranoia Persecution, delusion Hemorrhoids, external without complications Disposition: HOME, SELF-CARE Condition: Stable Departure-Patient Inst. Decision time for Depature: 13:06 Referrals: [facility] (PCP/Family) Primary Care Physician Patient Instructions: Hemorrhoids (DC) Add. Discharge Instructions: Make sure you eat a diet rich in fiber and drinking plenty of fluids. Monday please call your primary care physician at [facility] to get an appointment to get an MRI set up a follow-up the imaging findings and your vision changes. Follow-up with [facility] by phone Monday to set up follow-up appointments. If you begin to have worsening vision changes, blindness, double vision or other worrisome symptoms return to care. All discharge instructions reviewed with patient and/or family. Voiced understanding. Copy Copies To 1: PRO ARRIAGA TITUS J May 13, 2017 11:16
[2017-05-13 11:19] LABS: BILIRUBIN,URINE NEGATIVE (NEGATIVE); CLARITY,URINE SLIGHTLY CLOUDY; COLOR,URINE YELLOW; GLUCOSE, URINE (UA) NEGATIVE (NEGATIVE); KETONES,URINE 1+ (NEGATIVE); LEUKOCYTE ESTERASE ,URINE 1+ (NEGATIVE); NITRITE,URINE NEGATIVE (NEGATIVE); PH,URINE 5 (5-9); PROTEIN,URINE 2+ (NEGATIVE); UROBILINOGEN,URINE NORMAL (NORMAL)
[2017-05-13 11:24] LABS: HCG,QUALITATIVE URINE NEGATIVE (NEGATIVE)
[2017-05-13 11:25] LABS: BASOPHILS % (AUTO) 0 % (0-10); EOSINOPHILS # (AUTO) 0.2 10^3/uL (0.0-0.3); EOSINOPHILS % (AUTO) 2 % (0-10); HEMATOCRIT 40 % (35-52); HEMOGLOBIN 12.8 G/DL (11.5-16.0); LYMPHOCYTES # (AUTO) 2.1 X 10^3 (1.0-4.0); LYMPHOCYTES % (AUTO) 21 % (12-44); MEAN CORPUSCULAR HEMOGLOBIN 29 PG (25-34); MEAN CORPUSCULAR HGB CONC 32 G/DL (32-36); MEAN CORPUSCULAR VOLUME 89 FL (80-99); MEAN PLATELET VOLUME 9.6 FL (7.4-10.4); MONOCYTES # (AUTO) 0.6 X 10^3 (0.0-1.0); MONOCYTES % (AUTO) 6 % (0-12); NEUTROPHILS % (AUTO) 71 % (42-75); PLATELET COUNT 349 10^3/uL (130-400); RED BLOOD COUNT 4.46 10^6/uL (4.35-5.85); WHITE BLOOD COUNT 9.9 10^3/uL (4.3-11.0)
[2017-05-13 11:28] LABS: BACTERIA,URINE TRACE /HPF; RBC,URINE TNTC /HPF; WBC,URINE RARE /HPF
[2017-05-13 11:31] LABS: AMPHETAMINE SCREEN, URINE NEGATIVE (NEGATIVE); BARBITURATE SCREEN URINE NEGATIVE (NEGATIVE); BENZODIAZEPINES SCREEN URINE NEGATIVE (NEGATIVE); CANNABINOID SCREEN, URINE NEGATIVE (NEGATIVE); COCAINE SCREEN URINE NEGATIVE (NEGATIVE); METHADONE STAT NEGATIVE (NEGATIVE); METHAMPHETAMINE SCREEN URINE S NEGATIVE (NEGATIVE); OPIATE SCREEN URINE NEGATIVE (NEGATIVE); TRICYCLIC ANTIDEPRESSANTS SCRE NEGATIVE (NEGATIVE)
[2017-05-13 11:32] LABS: OXYCODONE STAT NEGATIVE (NEGATIVE); PROPOXYPHENE STAT NEGATIVE (NEGATIVE)
[2017-05-13 11:42] LABS: ALANINE AMINOTRANSFERASE 8 U/L (0-55); ALKALINE PHOSPHATASE 100 U/L (40-136); BILIRUBIN,TOTAL 0.5 MG/DL (0.1-1.0); BUN/CREATININE RATIO 15; CALCIUM 8.8 MG/DL (8.5-10.1); CARBON DIOXIDE 21 MMOL/L (21-32); CHLORIDE 107 MMOL/L (98-107); CREATININE SERUM 0.73 MG/DL (0.60-1.30); GFR ESTIMATED > 60; GLUCOSE 87 MG/DL (70-105); POTASSIUM 3.5 MMOL/L (3.6-5.0); SODIUM 138 MMOL/L (135-145); TOTAL PROTEIN 8.5 GM/DL (6.4-8.2)
--- NOTE | 2017-05-13 11:51 | Diagnostic Imaging Report ---
EXAMINATION: PA chest 12:03. INDICATION: Dizziness There are no prior studies available for comparison. The heart size is within normal limits. Lungs are clear. There is no evidence for failure, pneumonia or a pleural effusion. Mediastinum is not widened. The osseous structures are intact. IMPRESSION: There is no evidence for an acute cardiopulmonary abnormality. Dictated by: Dictated on workstation # [id number]
--- NOTE | 2017-05-13 11:57 | Diagnostic Imaging Report ---
PROCEDURE: CT head without contrast. TECHNIQUE: Multiple contiguous axial images were obtained through the brain without the use of intravenous contrast. INDICATION: Difficulty focusing, blurry vision. Concern for optic nerve abnormality. COMPARISON: None FINDINGS: The ventricles and cortical sulci appear age-appropriate. There is no midline shift or mass effect. No acute intracranial hemorrhage is seen. There is mildly decreased attenuation along the cortex of the right occipital lobe (image 26 and 27 of series 2). The calvarium appears intact. The paranasal sinuses are incompletely included, but are unremarkable. The globes are also incompletely included, but appear intact. No masses or fluid collections are seen in the included portions of the orbits. IMPRESSION: 1. Subtle decreased attenuation at the cortex of the right occipital lobe. This may represent artifact, however small focal ischemia or mass lesion is difficult to exclude. Please correlate with clinical findings, and if indicated consider MRI. 2. No acute intracranial hemorrhage. No mass effect. 3. The optic nerves are partially included and appear unremarkable by CT, however if there is persistent clinical concern for optic nerve abnormality, consider MRI. Dictated by: Dictated on workstation # [id number]
[2017-05-13 13:20] VITALS: BP 118/86
== END 2017-05-13 13:20 | disposition home or self-care (01) ==
LOC: EDUNIT# 10:32 → ER 10:34
DX: O99.355 Diseases of the nervous system complicating the puerperium (principal); G93.89 Other specified disorders of brain; O99.89 Other specified diseases and conditions complicating pregnancy, childbirth and the puerperium; H53.8 Other visual disturbances; O87.2 Hemorrhoids in the puerperium; O99.345 Other mental disorders complicating the puerperium; F60.0 Paranoid personality disorder; F22 Delusional disorders; Z87.59 Personal history of other complications of pregnancy, childbirth and the puerperium; Z87.891 Personal history of nicotine dependence
CPT/HCPCS: 36415; 70450; 71045; 80053; 80306; 80320; 81000; 84703; 85025; 87088

== ENCOUNTER → 2017-06-10 | Emergency (ER) | payer BC, OTHER ==
[~2017-06-10] VITALS: Ht 162.6 cm; Wt 63.5 kg
--- NOTE | 2017-06-10 20:15 | ED General ---
General Chief Complaint: Dizziness/Syncope Stated Complaint: DIZZINESS, FEELS VIBRATIONS Nursing Triage Note: Patient advises she was seen on 05-13 in the emergency department for dizziness and changes in her vision. Pt. has a scheduled appointment for an MRI in two weeks but advises that her dizziness and vision changes have worsened and she is now experiencing weakness. Nursing Sepsis Screen: No Definite Risk Source of Information: Patient, Old Records Exam Limitations: No Limitations History of Present Illness Date Seen by Provider: Jun 10, 2017 Time Seen by Provider: 19:00 Initial Comments See extensive history obtained by Dr. Madrid probe ER visit on May 13. This 27-year-old young lady presents to the emergency room with complaints of dizziness, feeling vibrations in her head, weakness, and vision changes. Her dizziness is described as a disequilibrium which she states has not improved. Patient also states her vision has improved. Patient had some significant paranoia noted on her visit May 13. She was referred to [facility] and states she is following with [facility]. She also had an eye exam and states that it was normal. Patient had MRI scheduled for May 22 but did not go to that appointment. There was a questionable abnormality seen on the CT scan from May 13 that needs further assessment with MRI. Allergies and Home Medications Allergies Coded Allergies: No Known Drug Allergies (Unverified , 05/11/10) Home Medications Docusate Sodium 100 Mg Capsule, 100 MG PO BID PRN for CONSTIPATION-1ST LINE Prescribed by: ANNMARIE THORPE on 04/20/17321 Hydrocodone Bit/Acetaminophen 1 Tab Tab, 1-2 TAB PO Q4H PRN for PAIN-MODERATE Prescribed by: ANNMARIE THORPE on 04/20/17321 Ibuprofen 600 Mg Tablet, 600 MG PO Q6H Prescribed by: ANNMARIE THORPE on 04/20/17321 Patient Home Medication List Home Medication List Reviewed: Yes Constitutional: see HPI EENTM: see HPI Respiratory: no symptoms reported Cardiovascular: no symptoms reported Gastrointestinal: no symptoms reported Genitourinary: no symptoms reported : No Musculoskeletal: no symptoms reported Skin: no symptoms reported Psychiatric/Neurological: See HPI Hematologic/Lymphatic: No Symptoms Reported Past Xeqdida-Tozmiz-Lamzrd Hx Patient Social History Alcohol Use: Denies Use Recreational Drug Use: No Smoking Status: Never a Smoker Type Used: Smokeless Tobacco Recent Foreign Travel: No Contact w/Someone Who Travel: No Recent Infectious Disease Expo: No Recent Hopitalizations: No Physical Abuse: No Sexual Abuse: No Immunizations Up To Date Tetanus Booster (TDap): Unknown Date of Influenza Vaccine: Dec 16, 2016 Seasonal Allergies Seasonal Allergies: No Surgeries History of Surgeries: Yes (C/S X4) Respiratory History of Respiratory Disorde: No Cardiovascular History of Cardiac Disorders: No Neurological History of Neurological Disord: No Reproductive System : No Hx Reproductive Disorders: No Sexually Transmitted Disease: No HIV/AIDS: No Female Reproductive Disorders: Denies Genitourinary History of Genitourinary Disor: No Gastrointestinal History of Gastrointestinal Di: No Musculoskeletal History of Musculoskeletal Dis: No Endocrine History of Endocrine Disorders: No HEENT History of HEENT Disorders: No Cancer History of Cancer: No 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 ) Suicide Risk Score: 0 Integumentary History of Skin or Integumenta: No Blood Transfusions History of Blood Disorders: No Adverse Reaction to a Blood Tr: No Family Medical History Significant Family History: Psychiatric Problems (grandfather had schizophrenia ) Family Medial History: Diabetes mellitus 19 MOTHER Physical Exam Vital Signs Vital Signs - First Documented 06/10/17 19:08 Pulse 70 Resp 14 B/P (MAP) 115/73 (87) Pulse Ox 98 O2 Delivery Room Air Capillary Refill : Less Than 3 Seconds General Appearance: No Apparent Distress, WD/WN HEENT: PERRL/EOMI, TMs Normal, Normal ENT Inspection, Pharynx Normal Neck: Normal Inspection Respiratory: Lungs Clear, Normal Breath Sounds, No Accessory Muscle Use, No Respiratory Distress Cardiovascular: Regular Rate, Rhythm, No Edema, No Murmur Extremity: Normal Inspection, No Pedal Edema Neurologic/Psychiatric: Alert, Oriented x3, No Motor/Sensory Deficits, Normal Mood/Affect, cell biologist II-XII Norm as Tested, Other (normal gait. Normal finger to nose and heel to castellanos) Skin: Normal Color, Warm/Dry Progress/Results/Core Measures Suspected Sepsis Recent Fever Within 48 Hours: No Infection Criteria Present: None New/Unexplained Altered Menta: No Sepsis Screen: No Definite Risk Sepsis Diagnosis: SIRS Temperature: Pulse: 70 Respiratory Rate: 14 Blood Pressure 115 /73 Mean: 87 Results/Orders Vital Signs/I&O Vital Sign - Last 12Hours 06/10/17 06/10/17 19:08 20:22 Pulse 70 86 Resp 14 14 B/P (MAP) 115/73 (87) 115/73 Pulse Ox 98 98 O2 Delivery Room Air Room Air Capillary Refill : Less Than 3 Seconds Blood Pressure Mean: 87 Progress Note : Progress Note Vital signs and exam were unremarkable. Patient had no focal neurologic deficits. No further workup was pursued. She was advised to proceed with her rescheduled MRI. Departure Impression Impression: Primary Impression: Anxiety Additional Impressions: Vision problems Paresthesia Disposition: 01 HOME, SELF-CARE Condition: Stable Departure-Patient Inst. Decision time for Depature: 20:14 Referrals: JERMAINE ROSAS APRN (PCP/Family) Primary Care Physician Patient Instructions: Anxiety, Adult (DC) Add. Discharge Instructions: Please follow through with obtaining the MRI study already ordered. If you feel anxiety might be a problem during the MRI, please contact your primary care provider and ask about anxiety medication for the procedure. Return to care if you have worsening symptoms before the MRI. MRI is the next step in your workup and it is very important that you have that study done. Follow-up with your behavioral health provider regarding anxiety. Please make sure you also have a follow-up appointment to see your primary care provider after the MRI is done. All discharge instructions reviewed with patient and/or family. Voiced understanding. Copy Copies To 1: PRO ARRIAGA JOSHUA T MD Jun 10, 2017 20:15
[2017-06-10 20:22] VITALS: BP 115/73
== END | disposition home or self-care (01) ==
LOC: EDUNIT# 18:39 → ER 18:42
DX: F41.9 Anxiety disorder, unspecified (principal); H53.8 Other visual disturbances; F22 Delusional disorders; R20.2 Paresthesia of skin; Z98.890 Other specified postprocedural states
CPT/HCPCS: 99283